=== PATIENT | female | born 1960 | race Caucasian/White ===

== ENCOUNTER 2020-09-16 12:10 | Inpatient (IN) ==
[2020-09-16 13:19] LABS: Basophils % 0.2 % (0.0-0.8); Hematocrit 39.6 VOL% (35.7-47.0); Immature Granulocytes % 0.6 %; Immature Granulocytes Absolute 0.03 #; Lymphocytes # 0.4 10*3/uL (1.4-4.0); Lymphocytes % 7.9 % (21.3-54.2); Mean Corpuscular HGB Conc 35.4 GM/DL (32-36); Mean Corpuscular Volume 83.9 FL (87-102); Mean Platelet Volume 10.6 FL (9.6-12.0); Monocytes % 6.9 % (1.7-12.7); Neutrophils % 84.4 % (38.7-73.9); Platelet Count 164 T/CUMM (130-400); Red Blood Count 4.72 MC/CUMM (3.8-5.5); Red Cell Distribution Width 11.9 % (9.3-17.3)
[2020-09-16 13:41] LABS: Bilirubin,Total 0.8 MG/DL (0.20-1.00); Potassium 3.1 MMOL/L (3.5-5.1); Total Protein 6.6 G/DL (6.4-8.2)
[2020-09-16] MEDS ORDERED: DEXAMETHASONE 4 MG TABLET PO ONE (14:30)
[2020-09-16] MEDS ORDERED: CASIRIVIMAB/IMDEVIMAB 1,200 MG in SODIUM CHLORIDE 0.9% 100 ML IV ONE (14:30)
[2020-09-16] MEDS ORDERED: ONDANSETRON 4 MG/2 ML VIAL IV PRN (14:30)
[2020-09-16] MEDS ORDERED: diphenhydrAMINE 50 MG/1 ML VIAL IV PRN ×2 (14:30)
[2020-09-16] MEDS ORDERED: methylPREDNISolone SOD SUC 125 MG/2 ML VIAL IV PRN (14:30)
[2020-09-16] MEDS ORDERED: MECLIZINE 25 MG TABLET PO PRN (14:30)
[2020-09-16] MEDS ORDERED: ACETAMINOPHEN 325 MG TABLET PO PRN (14:30)
[2020-09-16] MEDS ORDERED: SODIUM CHLORIDE 0.9% 200 ML IV SCH (14:30)
[2020-09-16] MEDS ORDERED: SODIUM CHLORIDE 0.9% 1,000 ML IV SCH (14:30)
[2020-09-16] MEDS ORDERED: GLUCAGON 1 MG VIAL IM PRN (15:11)
[2020-09-16] MEDS ORDERED: DEXTROSE 50% 25 GM/50 ML VIAL IV PRN (15:11)
[2020-09-16] MEDS ORDERED: ALUMINUM/MAGNES/SIMETH MAX STR 30 ML UDCUP PO PRN (15:16)
[2020-09-16] MEDS ORDERED: cefTRIAXone 1,000 MG in SODIUM CHLORIDE 0.9% 100 ML IV STA (15:58)
[2020-09-16] MEDS ORDERED: AZITHROMYCIN 250 MG TABLET PO STA (16:00)
[2020-09-16] MEDS ORDERED: POTASSIUM CHLORIDE 20 MEQ TABLET PO PRN (16:09)
[2020-09-16] MEDS ORDERED: POTASSIUM CHLORIDE 20 MEQ TABLET PO ONE (16:09)
[2020-09-16] MEDS ORDERED: REMDESIVIR 200 MG in SODIUM CHLORIDE 0.9% 210 ML IV ONE (17:00)
[2020-09-16] MEDS: ASCORBIC ACID 500 MG TABLET PO SCH (21:27)
[2020-09-16] MEDS: BUDESONIDE/FORMOTEROL 160-4.5 INHALER 6 GM INH SCH (21:27)
[2020-09-16] MEDS: RIVAROXABAN 10 MG TABLET PO SCH (21:41)
[2020-09-17 06:21] LABS: Hematocrit 43.2 VOL% (35.7-47.0); Hemoglobin 14.2 GM/DL (12.0-16.0); Immature Granulocytes % 0.4 %; Immature Granulocytes Absolute 0.02 #; Lymphocytes # 0.4 10*3/uL (1.4-4.0); Lymphocytes % 8.9 % (21.3-54.2); Mean Corpuscular HGB Conc 32.9 GM/DL (32-36); Mean Corpuscular Volume 89.3 FL (87-102); Mean Platelet Volume 11.2 FL (9.6-12.0); Monocytes % 8.7 % (1.7-12.7); Platelet Count 177 T/CUMM (130-400); Red Blood Count 4.84 MC/CUMM (3.8-5.5); Red Cell Distribution Width 12.3 % (9.3-17.3); White Blood Count 4.5 T/CUMM (4-12)
[2020-09-17 06:50] LABS: Calcium 8.4 MG/DL (8.5-10.1); Potassium 3.6 MMOL/L (3.5-5.1)
[2020-09-17 06:53] LABS: Ferritin 1491.4 ng/ml (8-252)
[2020-09-17 08:19] LABS: ABG Base Excess 2.4 MMOL/L (-2.5-2.5); ABG HCO3 26.3 MMOL/L (20-26); ABG Oxygen Saturation 88.7 % (95-100); ABG PCO2 37.9 MM HG (35-48); ABG PH 7.449 (7.35-7.45); ABG PO2 57.5 MM HG (80-95); ABG TCO2 22.5 MMOL/L (23-27)
[2020-09-17] MEDS ORDERED: PANTOPRAZOLE 40 MG VIAL IV SCH (09:00)
[2020-09-17] MEDS: ASCORBIC ACID 500 MG TABLET PO SCH ×2 (09:23→21:06)
[2020-09-17] MEDS: BUDESONIDE/FORMOTEROL 160-4.5 INHALER 6 GM INH SCH ×2 (09:23→21:06)
[2020-09-17] MEDS: DEXAMETHASONE 4 MG/1 ML VIAL IV SCH (09:23)
[2020-09-17] MEDS: CHOLECALCIFEROL 1,000 UNIT TABLET PO SCH (09:24)
[2020-09-17] MEDS: ZINC GLUCONATE 50 MG TABLET PO SCH (09:24)
[2020-09-17] MEDS: REMDESIVIR 100 MG in SODIUM CHLORIDE 0.9% 100 ML IV SCH (14:03)
[2020-09-17] MEDS: AZITHROMYCIN 250 MG TABLET PO SCH (15:26)
[2020-09-17] MEDS ORDERED: AZITHROMYCIN INJ 500 MG in SODIUM CHLORIDE 0.9% 250 ML IV SCH (16:00)
[2020-09-17] MEDS ORDERED: AZITHROMYCIN INJ 250 MG in SODIUM CHLORIDE 0.9% 250 ML IV SCH (16:00)
[2020-09-17] MEDS: cefTRIAXone 1,000 MG in SODIUM CHLORIDE 0.9% 100 ML IV SCH (18:00)
[2020-09-17] MEDS: RIVAROXABAN 10 MG TABLET PO SCH (21:06)
[2020-09-18] MEDS ORDERED: ALPRAZolam 0.5 MG TABLET PO ONE (03:27)
[2020-09-18 04:22] LABS: ABG Base Excess 2.2 MMOL/L (-2.5-2.5); ABG HCO3 26.9 MMOL/L (20-26); ABG Oxygen Saturation 87.6 % (95-100); ABG PCO2 41.8 MM HG (35-48); ABG PH 7.426 (7.35-7.45); ABG PO2 54.9 MM HG (80-95); ABG TCO2 28.2 MMOL/L (23-27)
[2020-09-18 05:13] LABS: Basophils % 0.2 % (0.0-0.8); Hematocrit 43.4 VOL% (35.7-47.0); Hemoglobin 14.4 GM/DL (12.0-16.0); Immature Granulocytes % 0.5 %; Immature Granulocytes Absolute 0.03 #; Lymphocytes # 0.7 10*3/uL (1.4-4.0); Lymphocytes % 10.7 % (21.3-54.2); Mean Corpuscular HGB Conc 33.2 GM/DL (32-36); Mean Corpuscular Volume 87.1 FL (87-102); Mean Platelet Volume 10.7 FL (9.6-12.0); Monocytes % 8.7 % (1.7-12.7); Neutrophils % 79.9 % (38.7-73.9); Platelet Count 271 T/CUMM (130-400); Red Blood Count 4.98 MC/CUMM (3.8-5.5); Red Cell Distribution Width 12.3 % (9.3-17.3); White Blood Count 6.6 T/CUMM (4-12)
[2020-09-18] MEDS: PANTOPRAZOLE 40 MG TABLET PO SCH (05:44)
[2020-09-18 05:47] LABS: Albumin 2.9 G/DL (3.4-5.0); Bilirubin,Direct 0.14 MG/DL (0.0-0.20); Bilirubin,Indirect 0.6 MG/DL (0.0-1.0); Bilirubin,Total 0.7 MG/DL (0.20-1.00); Total Protein 7.3 G/DL (6.4-8.2)
[2020-09-18 05:48] LABS: Calcium 8.4 MG/DL (8.5-10.1); Osmolality,Calculated 279.5 MOS/KG (273-304); Potassium 4.2 MMOL/L (3.5-5.1)
[2020-09-18 05:52] LABS: Ferritin 1754.8 ng/ml (8-252)
[2020-09-18] MEDS: AZITHROMYCIN 250 MG TABLET PO SCH (09:33)
[2020-09-18] MEDS: cefTRIAXone 1,000 MG in SODIUM CHLORIDE 0.9% 100 ML IV SCH (09:33)
[2020-09-18] MEDS: DEXAMETHASONE 4 MG/1 ML VIAL IV SCH (09:33)
[2020-09-18] MEDS: CHOLECALCIFEROL 1,000 UNIT TABLET PO SCH (09:33)
[2020-09-18] MEDS: BUDESONIDE/FORMOTEROL 160-4.5 INHALER 6 GM INH SCH ×2 (09:33→21:56)
[2020-09-18] MEDS: ASCORBIC ACID 500 MG TABLET PO SCH ×2 (09:33→21:56)
[2020-09-18] MEDS: ZINC GLUCONATE 50 MG TABLET PO SCH (09:33)
[2020-09-18] MEDS: REMDESIVIR 100 MG in SODIUM CHLORIDE 0.9% 100 ML IV SCH (10:55)
[2020-09-18] MEDS: RIVAROXABAN 10 MG TABLET PO SCH (21:56)
[2020-09-19 05:46] LABS: Basophils % 0.2 % (0.0-0.8); Hematocrit 43.3 VOL% (35.7-47.0); Hemoglobin 14.2 GM/DL (12.0-16.0); Immature Granulocytes % 0.8 %; Immature Granulocytes Absolute 0.07 #; Lymphocytes # 0.7 10*3/uL (1.4-4.0); Lymphocytes % 7.9 % (21.3-54.2); Mean Corpuscular HGB Conc 32.8 GM/DL (32-36); Mean Corpuscular Volume 90.2 FL (87-102); Mean Platelet Volume 10.1 FL (9.6-12.0); Monocytes % 9.5 % (1.7-12.7); Neutrophils % 81.6 % (38.7-73.9); Platelet Count 305 T/CUMM (130-400); Red Cell Distribution Width 11.9 % (9.3-17.3); White Blood Count 8.4 T/CUMM (4-12)
[2020-09-19] MEDS: LEVOTHYROXINE 112 MCG TABLET PO SCH (05:54)
[2020-09-19] MEDS: PANTOPRAZOLE 40 MG TABLET PO SCH (05:54)
[2020-09-19 06:05] LABS: Calcium 8.4 MG/DL (8.5-10.1); Osmolality,Calculated 274.8 MOS/KG (273-304); Potassium 3.9 MMOL/L (3.5-5.1)
[2020-09-19 06:08] LABS: Albumin 2.6 G/DL (3.4-5.0); Bilirubin,Direct 0.14 MG/DL (0.0-0.20); Bilirubin,Indirect 0.6 MG/DL (0.0-1.0); Bilirubin,Total 0.7 MG/DL (0.20-1.00); Total Protein 6.6 G/DL (6.4-8.2)
[2020-09-19 06:16] LABS: Ferritin 1387.9 ng/ml (8-252)
[2020-09-19] MEDS: DEXAMETHASONE 4 MG/1 ML VIAL IV SCH (10:43)
[2020-09-19] MEDS: ZINC GLUCONATE 50 MG TABLET PO SCH (10:43)
[2020-09-19] MEDS: CHOLECALCIFEROL 1,000 UNIT TABLET PO SCH (10:44)
[2020-09-19] MEDS: AZITHROMYCIN 250 MG TABLET PO SCH (10:44)
[2020-09-19] MEDS: ASCORBIC ACID 500 MG TABLET PO SCH ×2 (10:45→20:41)
[2020-09-19] MEDS: cefTRIAXone 1,000 MG in SODIUM CHLORIDE 0.9% 100 ML IV SCH (10:45)
[2020-09-19] MEDS: IVERMECTIN 3 MG TABLET PO SCH (10:48)
[2020-09-19] MEDS: BUDESONIDE/FORMOTEROL 160-4.5 INHALER 6 GM INH SCH ×2 (12:22→23:32)
[2020-09-19] MEDS: RIVAROXABAN 10 MG TABLET PO SCH (20:41)
[2020-09-20 05:12] LABS: ABG Base Excess 4.1 MMOL/L (-2.5-2.5); ABG HCO3 27.4 MMOL/L (20-26); ABG Oxygen Saturation 91.7 % (95-100); ABG PCO2 36.8 MM HG (35-48); ABG PO2 61.5 MM HG (80-95); ABG TCO2 28.5 MMOL/L (23-27)
[2020-09-20] MEDS: PANTOPRAZOLE 40 MG TABLET PO SCH (05:40)
[2020-09-20] MEDS: LEVOTHYROXINE 112 MCG TABLET PO SCH (05:40)
[2020-09-20 06:35] LABS: Basophils % 0.4 % (0.0-0.8); Hematocrit 45.2 VOL% (35.7-47.0); Hemoglobin 14.9 GM/DL (12.0-16.0); Immature Granulocytes % 1.1 %; Immature Granulocytes Absolute 0.09 #; Lymphocytes # 0.7 10*3/uL (1.4-4.0); Lymphocytes % 7.8 % (21.3-54.2); Mean Corpuscular Volume 87.4 FL (87-102); Mean Platelet Volume 10.2 FL (9.6-12.0); Monocytes % 8.1 % (1.7-12.7); Neutrophils % 82.6 % (38.7-73.9); Platelet Count 395 T/CUMM (130-400); Red Blood Count 5.17 MC/CUMM (3.8-5.5); Red Cell Distribution Width 11.9 % (9.3-17.3); White Blood Count 8.5 T/CUMM (4-12)
[2020-09-20 06:46] LABS: Albumin 2.8 G/DL (3.4-5.0); Bilirubin,Direct 0.18 MG/DL (0.0-0.20); Bilirubin,Indirect 0.7 MG/DL (0.0-1.0); Bilirubin,Total 0.9 MG/DL (0.20-1.00)
[2020-09-20 06:59] LABS: Ferritin 1218.7 ng/ml (8-252)
[2020-09-20 07:01] LABS: Calcium 8.6 MG/DL (8.5-10.1); Osmolality,Calculated 273.8 MOS/KG (273-304); Potassium 3.8 MMOL/L (3.5-5.1)
[2020-09-20] MEDS: ASCORBIC ACID 500 MG TABLET PO SCH ×2 (09:42→22:06)
[2020-09-20] MEDS: AZITHROMYCIN 250 MG TABLET PO SCH (09:42)
[2020-09-20] MEDS: DEXAMETHASONE 10 MG/1 ML VIAL IV SCH ×3 (09:42→22:07)
[2020-09-20] MEDS: IVERMECTIN 3 MG TABLET PO SCH (09:42)
[2020-09-20] MEDS: cefTRIAXone 1,000 MG in SODIUM CHLORIDE 0.9% 100 ML IV SCH (09:43)
[2020-09-20] MEDS: BUDESONIDE/FORMOTEROL 160-4.5 INHALER 6 GM INH SCH (10:48)
[2020-09-20] MEDS: ZINC GLUCONATE 50 MG TABLET PO SCH (12:09)
[2020-09-20] MEDS: CETIRIZINE 10 MG TABLET PO SCH (12:09)
[2020-09-20] MEDS: FAMOTIDINE 20 MG TABLET PO SCH ×2 (12:09→22:08)
[2020-09-20] MEDS: CHOLECALCIFEROL 5,000 UNIT TABLET PO SCH (12:09)
[2020-09-20] MEDS: ONDANSETRON 4 MG/2 ML VIAL IV PRN (18:09)
[2020-09-20] MEDS: RIVAROXABAN 10 MG TABLET PO SCH (22:07)
[2020-09-20] MEDS: MELATONIN 3 MG TABLET PO SCH (22:07)
[2020-09-21] MEDS ORDERED: DEXMEDETOMIDINE 400 MCG in SODIUM CHLORIDE 0.9% 96 ML IV PRN (01:01)
[2020-09-21] MEDS: BUDESONIDE/FORMOTEROL 160-4.5 INHALER 6 GM INH SCH ×3 (01:10→21:26)
[2020-09-21 02:24] LABS: Bilirubin,Urine Negative (Negative); Blood, Urine Negative (Negative); Glucose,Urine (UA) Negative (Negative); Ketones,Urine Negative (Negative); Nitrite,Urine Negative (Negative); Protein,Urine Negative; RBC,Urine <1 /HPF (0-4); Squamous Epithelial Cell,Urine Occasional /HPF (0-10); Urine Appearance CLEAR (Clear); Urine Color Colorless (Yellow); Urine Specific Gravity 1.001 (1.001-1.035); Urine Urobilinogen < 2.0 EU/DL (0.2-1.0)
[2020-09-21 02:38] LABS: ABG Base Excess 3.6 MMOL/L (-2.5-2.5); ABG HCO3 27.8 MMOL/L (20-26); ABG PCO2 40.3 MM HG (35-48); ABG PH 7.456 (7.35-7.45); ABG PO2 65.3 MM HG (80-95)
[2020-09-21] MEDS: DEXAMETHASONE 10 MG/1 ML VIAL IV SCH ×3 (04:54→21:26)
[2020-09-21 05:03] LABS: Basophils % 0.3 % (0.0-0.8); Hematocrit 42.5 VOL% (35.7-47.0); Hemoglobin 14.5 GM/DL (12.0-16.0); Immature Granulocytes % 2.5 %; Immature Granulocytes Absolute 0.23 #; Lymphocytes # 0.5 10*3/uL (1.4-4.0); Lymphocytes % 5.4 % (21.3-54.2); Mean Corpuscular HGB Conc 34.1 GM/DL (32-36); Mean Corpuscular Volume 85.9 FL (87-102); Mean Platelet Volume 9.8 FL (9.6-12.0); Monocytes % 4.9 % (1.7-12.7); Neutrophils % 86.9 % (38.7-73.9); Platelet Count 303 T/CUMM (130-400); Red Blood Count 4.95 MC/CUMM (3.8-5.5); Red Cell Distribution Width 11.8 % (9.3-17.3); White Blood Count 9.4 T/CUMM (4-12)
[2020-09-21 05:23] LABS: Calcium 8.3 MG/DL (8.5-10.1); Osmolality,Calculated 281.4 MOS/KG (273-304); Potassium 4.6 MMOL/L (3.5-5.1)
[2020-09-21 05:29] LABS: Ferritin 1026.5 ng/ml (8-252)
[2020-09-21] MEDS: LEVOTHYROXINE 112 MCG TABLET PO SCH (05:36)
[2020-09-21] MEDS: CETIRIZINE 10 MG TABLET PO SCH (08:44)
[2020-09-21] MEDS: IVERMECTIN 3 MG TABLET PO SCH (08:46)
[2020-09-21] MEDS: FAMOTIDINE 20 MG TABLET PO SCH ×2 (08:47→21:27)
[2020-09-21] MEDS: ZINC GLUCONATE 50 MG TABLET PO SCH (08:47)
[2020-09-21] MEDS: ASCORBIC ACID 500 MG TABLET PO SCH ×2 (08:50→21:27)
[2020-09-21] MEDS: CHOLECALCIFEROL 5,000 UNIT TABLET PO SCH (08:50)
[2020-09-21] MEDS: cefTRIAXone 1,000 MG in SODIUM CHLORIDE 0.9% 100 ML IV SCH (09:15)
[2020-09-21] MEDS: ALPRAZolam 0.5 MG TABLET PO PRN ×2 (10:10→21:27)
[2020-09-21 12:56] LABS: ABG Base Excess 4.6 MMOL/L (-2.5-2.5); ABG HCO3 28.2 MMOL/L (20-26); ABG Oxygen Saturation 87.3 % (95-100); ABG PCO2 42.4 MM HG (35-48); ABG PH 7.446 (7.35-7.45); ABG PO2 56.1 MM HG (80-95)
[2020-09-21] MEDS: ONDANSETRON 4 MG/2 ML VIAL IV PRN (18:06)
[2020-09-21] MEDS: ENOXAPARIN 60 MG/0.6 ML SYRINGE SUBCUT SCH (21:27)
[2020-09-21] MEDS: MELATONIN 3 MG TABLET PO SCH (21:27)
[2020-09-22 03:19] LABS: Basophils % 0.1 % (0.0-0.8); Hematocrit 41.7 VOL% (35.7-47.0); Hemoglobin 14.1 GM/DL (12.0-16.0); Immature Granulocytes % 2.7 %; Lymphocytes # 0.5 10*3/uL (1.4-4.0); Lymphocytes % 3.5 % (21.3-54.2); Mean Corpuscular HGB Conc 33.8 GM/DL (32-36); Mean Corpuscular Volume 85.6 FL (87-102); Mean Platelet Volume 9.9 FL (9.6-12.0); Monocytes % 5.9 % (1.7-12.7); Neutrophils % 87.8 % (38.7-73.9); Platelet Count 289 T/CUMM (130-400); Red Blood Count 4.87 MC/CUMM (3.8-5.5); Red Cell Distribution Width 11.8 % (9.3-17.3); White Blood Count 14.7 T/CUMM (4-12)
[2020-09-22 03:40] LABS: Hypochromasia 1+; Lymphocytes 1 % (20-55); Microcytosis 1+; Platelet Estimate Normal; Segmented Neutrophils 94 % (50-85); Total Cells Counted 100
[2020-09-22 04:03] LABS: ABG HCO3 28.7 MMOL/L (20-26); ABG Oxygen Saturation 89.5 % (95-100); ABG PCO2 41.5 MM HG (35-48); ABG PH 7.458 (7.35-7.45); ABG PO2 58.8 MM HG (80-95); ABG TCO2 25.1 MMOL/L (23-27); Allen Test Positive; Pt O2 Delivery Device BIPAP
[2020-09-22 04:24] LABS: Calcium 7.9 MG/DL (8.5-10.1); Osmolality,Calculated 282.5 MOS/KG (273-304); Potassium 4.4 MMOL/L (3.5-5.1)
[2020-09-22 04:26] LABS: Ferritin 842.8 ng/ml (8-252)
[2020-09-22] MEDS: LEVOTHYROXINE 112 MCG TABLET PO SCH (06:22)
[2020-09-22] MEDS: cefTRIAXone 1,000 MG in SODIUM CHLORIDE 0.9% 100 ML IV SCH (08:05)
[2020-09-22] MEDS: FAMOTIDINE 20 MG TABLET PO SCH ×2 (08:05→20:48)
[2020-09-22] MEDS: ZINC GLUCONATE 50 MG TABLET PO SCH (08:05)
[2020-09-22] MEDS: DEXAMETHASONE 10 MG/1 ML VIAL IV SCH (08:05)
[2020-09-22] MEDS: ENOXAPARIN 60 MG/0.6 ML SYRINGE SUBCUT SCH ×2 (08:05→20:48)
[2020-09-22] MEDS: CHOLECALCIFEROL 5,000 UNIT TABLET PO SCH (08:05)
[2020-09-22] MEDS: BUDESONIDE/FORMOTEROL 160-4.5 INHALER 6 GM INH SCH ×2 (08:05→20:48)
[2020-09-22] MEDS: IVERMECTIN 3 MG TABLET PO SCH (08:05)
[2020-09-22] MEDS: ASCORBIC ACID 500 MG TABLET PO SCH ×2 (08:05→20:49)
[2020-09-22] MEDS: CETIRIZINE 10 MG TABLET PO SCH (08:06)
[2020-09-22] MEDS ORDERED: MORPHINE 2 MG/1 ML SYRINGE ONE (13:11)
[2020-09-22] MEDS: MORPHINE 2 MG/1 ML SYRINGE IV PRN (13:15)
[2020-09-22] MEDS: ALPRAZolam 0.5 MG TABLET PO PRN ×2 (13:17→20:49)
[2020-09-22] MEDS: MELATONIN 3 MG TABLET PO SCH (20:48)
[2020-09-23 05:19] LABS: ABG Base Excess 5.5 MMOL/L (-2.5-2.5); ABG HCO3 29.2 MMOL/L (20-26); ABG Oxygen Saturation 89.8 % (95-100); ABG PCO2 40.9 MM HG (35-48); ABG PH 7.469 (7.35-7.45); ABG PO2 57.7 MM HG (80-95); ABG TCO2 25.5 MMOL/L (23-27); Allen Test Positive; Pt O2 Delivery Device Other
[2020-09-23] MEDS: LEVOTHYROXINE 112 MCG TABLET PO SCH (05:52)
[2020-09-23 06:24] LABS: Basophils % 0.2 % (0.0-0.8); Eosinophils % 0.2 % (0.00-10.9); Hematocrit 42.2 VOL% (35.7-47.0); Hemoglobin 13.8 GM/DL (12.0-16.0); Immature Granulocytes % 4.7 %; Immature Granulocytes Absolute 0.63 #; Lymphocytes # 0.6 10*3/uL (1.4-4.0); Lymphocytes % 4.6 % (21.3-54.2); Mean Corpuscular HGB Conc 32.7 GM/DL (32-36); Mean Corpuscular Volume 88.7 FL (87-102); Mean Platelet Volume 9.9 FL (9.6-12.0); Monocytes % 3.8 % (1.7-12.7); Neutrophils % 86.5 % (38.7-73.9); Platelet Count 272 T/CUMM (130-400); Red Blood Count 4.76 MC/CUMM (3.8-5.5); Red Cell Distribution Width 11.9 % (9.3-17.3); White Blood Count 13.3 T/CUMM (4-12)
[2020-09-23 06:38] LABS: Calcium 8.1 MG/DL (8.5-10.1); Osmolality,Calculated 275.7 MOS/KG (273-304)
[2020-09-23 07:03] LABS: Band Neutrophils 1 % (0-10); Hypochromasia Slight; Lymphocytes 9 % (20-55); Segmented Neutrophils 89 % (50-85); Total Cells Counted 100
[2020-09-23 07:04] LABS: Microcytosis 1+; Platelet Estimate Normal
[2020-09-23] MEDS: DEXAMETHASONE 10 MG/1 ML VIAL IV SCH (08:22)
[2020-09-23] MEDS: FAMOTIDINE 20 MG TABLET PO SCH ×2 (08:23→20:25)
[2020-09-23] MEDS: ZINC GLUCONATE 50 MG TABLET PO SCH (08:23)
[2020-09-23] MEDS: CETIRIZINE 10 MG TABLET PO SCH (08:23)
[2020-09-23] MEDS: ASCORBIC ACID 500 MG TABLET PO SCH ×2 (08:23→20:26)
[2020-09-23] MEDS: cefTRIAXone 1,000 MG in SODIUM CHLORIDE 0.9% 100 ML IV SCH (08:23)
[2020-09-23] MEDS: CHOLECALCIFEROL 5,000 UNIT TABLET PO SCH (08:23)
[2020-09-23] MEDS: ENOXAPARIN 60 MG/0.6 ML SYRINGE SUBCUT SCH ×2 (08:23→20:25)
[2020-09-23] MEDS: IVERMECTIN 3 MG TABLET PO SCH (08:23)
[2020-09-23] MEDS: BUDESONIDE/FORMOTEROL 160-4.5 INHALER 6 GM INH SCH ×2 (08:23→20:25)
[2020-09-23] MEDS: ALPRAZolam 0.5 MG TABLET PO PRN ×2 (08:45→20:27)
[2020-09-23] MEDS: MORPHINE 2 MG/1 ML SYRINGE IV PRN ×2 (09:39→20:26)
[2020-09-23] MEDS: MELATONIN 3 MG TABLET PO SCH (20:25)
[2020-09-24 04:31] LABS: ABG Base Excess 4.8 MMOL/L (-2.5-2.5); ABG HCO3 28.6 MMOL/L (20-26); ABG Oxygen Saturation 88.5 % (95-100); ABG PCO2 39.4 MM HG (35-48); ABG PH 7.478 (7.35-7.45); ABG PO2 57.6 MM HG (80-95); ABG TCO2 29.8 MMOL/L (23-27); Allen Test Positive; Pt O2 Delivery Device BIPAP
[2020-09-24 04:59] LABS: Basophils # 0.1 10*3/uL (0.0-0.2); Basophils % 0.3 % (0.0-0.8); Eosinophils % 0.2 % (0.00-10.9); Hematocrit 41.7 VOL% (35.7-47.0); Hemoglobin 14.5 GM/DL (12.0-16.0); Immature Granulocytes % 3.5 %; Lymphocytes # 0.5 10*3/uL (1.4-4.0); Lymphocytes % 3.6 % (21.3-54.2); Mean Corpuscular HGB Conc 34.8 GM/DL (32-36); Mean Corpuscular Volume 86.9 FL (87-102); Monocytes % 3.9 % (1.7-12.7); Neutrophils % 88.5 % (38.7-73.9); Platelet Count 257 T/CUMM (130-400); Red Cell Distribution Width 11.9 % (9.3-17.3); White Blood Count 14.4 T/CUMM (4-12)
[2020-09-24 05:23] LABS: Calcium 8.2 MG/DL (8.5-10.1); Lymphocytes 4 % (20-55); Osmolality,Calculated 271.8 MOS/KG (273-304); Platelet Estimate Normal; Potassium 4.3 MMOL/L (3.5-5.1); Segmented Neutrophils 94 % (50-85); Total Cells Counted 100
[2020-09-24] MEDS: LEVOTHYROXINE 112 MCG TABLET PO SCH (06:42)
[2020-09-24] MEDS: ALPRAZolam 0.5 MG TABLET PO PRN ×2 (08:30→20:50)
[2020-09-24] MEDS: DEXAMETHASONE 10 MG/1 ML VIAL IV SCH (08:30)
[2020-09-24] MEDS: BUDESONIDE/FORMOTEROL 160-4.5 INHALER 6 GM INH SCH ×2 (09:49→20:49)
[2020-09-24] MEDS: CHOLECALCIFEROL 5,000 UNIT TABLET PO SCH (09:49)
[2020-09-24] MEDS: ZINC GLUCONATE 50 MG TABLET PO SCH (09:49)
[2020-09-24] MEDS: FAMOTIDINE 20 MG TABLET PO SCH ×2 (09:49→20:49)
[2020-09-24] MEDS: ENOXAPARIN 60 MG/0.6 ML SYRINGE SUBCUT SCH ×2 (09:49→20:49)
[2020-09-24] MEDS: ASCORBIC ACID 500 MG TABLET PO SCH ×2 (09:49→20:49)
[2020-09-24] MEDS: CETIRIZINE 10 MG TABLET PO SCH (09:50)
[2020-09-24] MEDS: MELATONIN 3 MG TABLET PO SCH (20:49)
[2020-09-24] MEDS: MORPHINE 2 MG/1 ML SYRINGE IV PRN (21:39)
[2020-09-25 04:47] LABS: ABG Base Excess 4.9 MMOL/L (-2.5-2.5); ABG HCO3 28.6 MMOL/L (20-26); ABG Oxygen Saturation 89.2 % (95-100); ABG PCO2 40.1 MM HG (35-48); ABG PH 7.467 (7.35-7.45); ABG PO2 57.7 MM HG (80-95); ABG TCO2 24.8 MMOL/L (23-27)
[2020-09-25 06:07] LABS: Basophils % 0.1 % (0.0-0.8); Eosinophils % 0.2 % (0.00-10.9); Hematocrit 43.4 VOL% (35.7-47.0); Hemoglobin 14.1 GM/DL (12.0-16.0); Immature Granulocytes % 3.6 %; Immature Granulocytes Absolute 0.49 #; Lymphocytes # 0.4 10*3/uL (1.4-4.0); Lymphocytes % 3.1 % (21.3-54.2); Mean Corpuscular HGB Conc 32.5 GM/DL (32-36); Mean Corpuscular Volume 88.6 FL (87-102); Mean Platelet Volume 9.9 FL (9.6-12.0); Monocytes % 3.8 % (1.7-12.7); Neutrophils % 89.2 % (38.7-73.9); Platelet Count 246 T/CUMM (130-400); Red Cell Distribution Width 12.2 % (9.3-17.3); White Blood Count 13.6 T/CUMM (4-12)
[2020-09-25] MEDS: LEVOTHYROXINE 112 MCG TABLET PO SCH (06:14)
[2020-09-25 06:35] LABS: Calcium 8.5 MG/DL (8.5-10.1); Osmolality,Calculated 269.1 MOS/KG (273-304); Potassium 4.3 MMOL/L (3.5-5.1)
[2020-09-25 07:14] LABS: Lymphocytes 2 % (20-55); Platelet Estimate Normal; Segmented Neutrophils 95 % (50-85); Total Cells Counted 100
[2020-09-25] MEDS: DEXAMETHASONE 10 MG/1 ML VIAL IV SCH (09:00)
[2020-09-25] MEDS: CETIRIZINE 10 MG TABLET PO SCH (09:01)
[2020-09-25] MEDS: BUDESONIDE/FORMOTEROL 160-4.5 INHALER 6 GM INH SCH ×2 (09:01→20:54)
[2020-09-25] MEDS: CHOLECALCIFEROL 5,000 UNIT TABLET PO SCH (09:01)
[2020-09-25] MEDS: ASCORBIC ACID 500 MG TABLET PO SCH ×2 (09:01→20:53)
[2020-09-25] MEDS: ENOXAPARIN 60 MG/0.6 ML SYRINGE SUBCUT SCH ×2 (09:01→20:53)
[2020-09-25] MEDS: ZINC GLUCONATE 50 MG TABLET PO SCH (09:01)
[2020-09-25] MEDS: FAMOTIDINE 20 MG TABLET PO SCH ×2 (09:01→20:53)
[2020-09-25] MEDS: ALPRAZolam 0.5 MG TABLET PO PRN (10:18)
[2020-09-25] MEDS: MELATONIN 3 MG TABLET PO SCH (20:53)
[2020-09-26 05:07] LABS: Basophils % 0.2 % (0.0-0.8); Eosinophils # 0.1 10*3/uL (0.0-0.87); Eosinophils % 0.5 % (0.00-10.9); Hematocrit 45.3 VOL% (35.7-47.0); Hemoglobin 14.9 GM/DL (12.0-16.0); Immature Granulocytes % 2.2 %; Immature Granulocytes Absolute 0.41 #; Lymphocytes # 0.5 10*3/uL (1.4-4.0); Lymphocytes % 2.7 % (21.3-54.2); Mean Corpuscular HGB Conc 32.9 GM/DL (32-36); Mean Corpuscular Volume 87.8 FL (87-102); Mean Platelet Volume 10.4 FL (9.6-12.0); Monocytes % 5.2 % (1.7-12.7); Neutrophils % 89.2 % (38.7-73.9); Platelet Count 253 T/CUMM (130-400); Red Blood Count 5.16 MC/CUMM (3.8-5.5); Red Cell Distribution Width 12.2 % (9.3-17.3); White Blood Count 18.5 T/CUMM (4-12)
[2020-09-26 05:36] LABS: Calcium 8.9 MG/DL (8.5-10.1); Osmolality,Calculated 272.8 MOS/KG (273-304); Potassium 4.2 MMOL/L (3.5-5.1)
[2020-09-26 05:37] LABS: Band Neutrophils 1 % (0-10); Lymphocytes 1 % (20-55); Platelet Estimate Adequate; Segmented Neutrophils 94 % (50-85); Total Cells Counted 100
[2020-09-26 05:39] LABS: ABG Base Excess 4.4 MMOL/L (-2.5-2.5); ABG HCO3 27.5 MMOL/L (20-26); ABG Oxygen Saturation 87.9 % (95-100); ABG PCO2 36.1 MM HG (35-48); ABG PH 7.499 (7.35-7.45); ABG PO2 55.5 MM HG (80-95); ABG TCO2 28.6 MMOL/L (23-27); Allen Test Positive; Pt O2 Delivery Device Other
[2020-09-26] MEDS: LEVOTHYROXINE 112 MCG TABLET PO SCH (06:26)
[2020-09-26] MEDS: FAMOTIDINE 20 MG TABLET PO SCH ×2 (08:42→21:20)
[2020-09-26] MEDS: CETIRIZINE 10 MG TABLET PO SCH (08:42)
[2020-09-26] MEDS: ZINC GLUCONATE 50 MG TABLET PO SCH (08:42)
[2020-09-26] MEDS: CHOLECALCIFEROL 5,000 UNIT TABLET PO SCH (08:42)
[2020-09-26] MEDS: ASCORBIC ACID 500 MG TABLET PO SCH ×2 (08:42→21:20)
[2020-09-26] MEDS: DEXAMETHASONE 10 MG/1 ML VIAL IV SCH (08:43)
[2020-09-26] MEDS: BUDESONIDE/FORMOTEROL 160-4.5 INHALER 6 GM INH SCH ×2 (08:43→21:20)
[2020-09-26] MEDS: ENOXAPARIN 60 MG/0.6 ML SYRINGE SUBCUT SCH ×2 (08:43→21:20)
[2020-09-26] MEDS: SODIUM CHLORIDE 0.9% 1,000 ML IV SCH (10:22)
[2020-09-26] MEDS: ALPRAZolam 0.5 MG TABLET PO PRN ×2 (14:15→21:21)
[2020-09-26] MEDS: MELATONIN 3 MG TABLET PO SCH (21:20)
[2020-09-27 03:10] LABS: ABG Base Excess 1.4 MMOL/L (-2.5-2.5); ABG HCO3 24.8 MMOL/L (20-26); ABG PCO2 35.6 MM HG (35-48); ABG PH 7.461 (7.35-7.45); ABG TCO2 25.9 MMOL/L (23-27)
[2020-09-27] MEDS: SODIUM CHLORIDE 0.9% 1,000 ML IV SCH ×4 (04:44→19:00)
[2020-09-27 06:35] LABS: Calcium 8.7 MG/DL (8.5-10.1); Osmolality,Calculated 273.8 MOS/KG (273-304); Potassium 4.3 MMOL/L (3.5-5.1)
[2020-09-27 06:50] LABS: Basophils # 0.1 10*3/uL (0.0-0.2); Basophils % 0.5 % (0.0-0.8); Eosinophils # 0.1 10*3/uL (0.0-0.87); Eosinophils % 0.3 % (0.00-10.9); Hematocrit 47.3 VOL% (35.7-47.0); Hemoglobin 15.2 GM/DL (12.0-16.0); Immature Granulocytes % 1.3 %; Immature Granulocytes Absolute 0.24 #; Lymphocytes # 0.5 10*3/uL (1.4-4.0); Mean Corpuscular HGB Conc 32.1 GM/DL (32-36); Mean Corpuscular Volume 93.3 FL (87-102); Mean Platelet Volume 10.6 FL (9.6-12.0); Monocytes % 5.9 % (1.7-12.7); Platelet Count 166 T/CUMM (130-400); Red Blood Count 5.07 MC/CUMM (3.8-5.5); Red Cell Distribution Width 12.6 % (9.3-17.3); White Blood Count 18.3 T/CUMM (4-12)
[2020-09-27] MEDS: LEVOTHYROXINE 112 MCG TABLET PO SCH (06:55)
[2020-09-27 07:14] LABS: Lymphocytes 3 % (20-55); Platelet Estimate Adequate; Segmented Neutrophils 90 % (50-85); Total Cells Counted 100
[2020-09-27] MEDS: CHOLECALCIFEROL 5,000 UNIT TABLET PO SCH (08:30)
[2020-09-27] MEDS: FAMOTIDINE 20 MG TABLET PO SCH ×2 (08:30→20:21)
[2020-09-27] MEDS: ZINC GLUCONATE 50 MG TABLET PO SCH (08:30)
[2020-09-27] MEDS: ASCORBIC ACID 500 MG TABLET PO SCH ×2 (08:30→20:21)
[2020-09-27] MEDS: CETIRIZINE 10 MG TABLET PO SCH (08:30)
[2020-09-27] MEDS: BUDESONIDE/FORMOTEROL 160-4.5 INHALER 6 GM INH SCH ×2 (08:30→20:21)
[2020-09-27] MEDS: ALPRAZolam 0.5 MG TABLET PO PRN ×2 (08:45→21:05)
[2020-09-27] MEDS: DEXAMETHASONE 10 MG/1 ML VIAL IV SCH (08:45)
[2020-09-27] MEDS: ENOXAPARIN 60 MG/0.6 ML SYRINGE SUBCUT SCH ×2 (09:34→20:21)
[2020-09-27] MEDS: MORPHINE 2 MG/1 ML SYRINGE IV PRN ×3 (09:35→21:12)
[2020-09-27] MEDS: MELATONIN 3 MG TABLET PO SCH (20:21)
[2020-09-28 05:46] LABS: ABG HCO3 25.9 MMOL/L (20-26); ABG Oxygen Saturation 86.1 % (95-100); ABG PH 7.443 (7.35-7.45); ABG PO2 52.4 MM HG (80-95); ABG TCO2 22.4 MMOL/L (23-27); Allen Test Positive; Pt O2 Delivery Device Other
[2020-09-28 05:47] LABS: Basophils % 0.2 % (0.0-0.8); Eosinophils # 0.1 10*3/uL (0.0-0.87); Eosinophils % 0.7 % (0.00-10.9); Hemoglobin 13.8 GM/DL (12.0-16.0); Immature Granulocytes % 1.2 %; Immature Granulocytes Absolute 0.23 #; Lymphocytes # 0.4 10*3/uL (1.4-4.0); Lymphocytes % 2.1 % (21.3-54.2); Mean Corpuscular HGB Conc 32.9 GM/DL (32-36); Mean Corpuscular Volume 88.2 FL (87-102); Mean Platelet Volume 10.4 FL (9.6-12.0); Monocytes % 5.6 % (1.7-12.7); Neutrophils % 90.2 % (38.7-73.9); Platelet Count 173 T/CUMM (130-400); Red Blood Count 4.76 MC/CUMM (3.8-5.5); Red Cell Distribution Width 12.6 % (9.3-17.3); White Blood Count 18.7 T/CUMM (4-12)
[2020-09-28] MEDS: LEVOTHYROXINE 112 MCG TABLET PO SCH (06:15)
[2020-09-28 06:16] LABS: Eosinophils 1 % (0-10); Hypochromasia Slight; Lymphocytes 1 % (20-55); Microcytosis Slight; Platelet Estimate Adequate; Segmented Neutrophils 91 % (50-85); Total Cells Counted 100
[2020-09-28 06:20] LABS: Calcium 8.4 MG/DL (8.5-10.1); Osmolality,Calculated 272.8 MOS/KG (273-304); Potassium 4.7 MMOL/L (3.5-5.1)
[2020-09-28] MEDS: MORPHINE 2 MG/1 ML SYRINGE IV PRN (09:05)
[2020-09-28] MEDS: ASCORBIC ACID 500 MG TABLET PO SCH ×2 (09:16→20:22)
[2020-09-28] MEDS: CETIRIZINE 10 MG TABLET PO SCH (09:16)
[2020-09-28] MEDS: ALPRAZolam 0.5 MG TABLET PO PRN ×2 (09:16→20:22)
[2020-09-28] MEDS: ENOXAPARIN 60 MG/0.6 ML SYRINGE SUBCUT SCH ×2 (09:16→20:22)
[2020-09-28] MEDS: CHOLECALCIFEROL 5,000 UNIT TABLET PO SCH (09:16)
[2020-09-28] MEDS: ZINC GLUCONATE 50 MG TABLET PO SCH (09:16)
[2020-09-28] MEDS: FAMOTIDINE 20 MG TABLET PO SCH ×2 (09:16→20:22)
[2020-09-28] MEDS: DEXAMETHASONE 10 MG/1 ML VIAL IV SCH (09:16)
[2020-09-28] MEDS: BUDESONIDE/FORMOTEROL 160-4.5 INHALER 6 GM INH SCH ×2 (09:16→20:23)
[2020-09-28] MEDS: SODIUM CHLORIDE 0.9% 1,000 ML IV SCH ×3 (09:19→16:26)
[2020-09-28] MEDS ORDERED: FUROSEMIDE 20 MG/2 ML VIAL IV ONE (15:00)
[2020-09-28] MEDS: methylPREDNISolone SOD SUC 40 MG/1 ML VIAL IV SCH (20:22)
[2020-09-28] MEDS: MELATONIN 3 MG TABLET PO SCH (20:22)
[2020-09-28] MEDS ORDERED: LORazepam 2 MG/1 ML VIAL IV PRN (22:59)
[2020-09-29 00:10] LABS: ABG HCO3 26.7 MMOL/L (20-26); ABG Oxygen Saturation 82.5 % (95-100); ABG PCO2 38.2 MM HG (35-48); ABG PH 7.463 (7.35-7.45); ABG PO2 48.6 MM HG (80-95); ABG TCO2 27.9 MMOL/L (23-27)
[2020-09-29 04:59] LABS: Allen Test Positive; Pt O2 Delivery Device BIPAP
[2020-09-29 05:01] LABS: ABG Base Excess 3.6 MMOL/L (-2.5-2.5); ABG HCO3 27.2 MMOL/L (20-26); ABG Oxygen Saturation 82.1 % (95-100); ABG PCO2 38.1 MM HG (35-48); ABG PH 7.472 (7.35-7.45); ABG PO2 48.2 MM HG (80-95); ABG TCO2 28.4 MMOL/L (23-27)
[2020-09-29 05:39] LABS: Basophils % 0.2 % (0.0-0.8); Hematocrit 42.6 VOL% (35.7-47.0); Hemoglobin 14.3 GM/DL (12.0-16.0); Immature Granulocytes % 1.3 %; Immature Granulocytes Absolute 0.15 #; Lymphocytes # 0.4 10*3/uL (1.4-4.0); Lymphocytes % 3.2 % (21.3-54.2); Mean Corpuscular HGB Conc 33.6 GM/DL (32-36); Mean Corpuscular Volume 86.4 FL (87-102); Mean Platelet Volume 11.2 FL (9.6-12.0); Monocytes % 3.2 % (1.7-12.7); Neutrophils % 92.1 % (38.7-73.9); Platelet Count 176 T/CUMM (130-400); Red Blood Count 4.93 MC/CUMM (3.8-5.5); Red Cell Distribution Width 12.5 % (9.3-17.3); White Blood Count 11.4 T/CUMM (4-12)
[2020-09-29] MEDS: methylPREDNISolone SOD SUC 40 MG/1 ML VIAL IV SCH ×3 (05:50→20:38)
[2020-09-29] MEDS: SODIUM CHLORIDE 0.9% 1,000 ML IV SCH ×3 (05:51→20:09)
[2020-09-29] MEDS: LEVOTHYROXINE 112 MCG TABLET PO SCH (05:51)
[2020-09-29 05:59] LABS: Calcium 8.8 MG/DL (8.5-10.1); Osmolality,Calculated 282.4 MOS/KG (273-304); Potassium 4.3 MMOL/L (3.5-5.1)
[2020-09-29 06:05] LABS: Lymphocytes 1 % (20-55); Platelet Estimate Normal; Segmented Neutrophils 97 % (50-85); Total Cells Counted 100
[2020-09-29 06:55] LABS: Ferritin 2259.5 ng/mL (8-252)
[2020-09-29] MEDS: CETIRIZINE 10 MG TABLET PO SCH (08:37)
[2020-09-29] MEDS: ASCORBIC ACID 500 MG TABLET PO SCH ×2 (08:37→20:36)
[2020-09-29] MEDS: ZINC GLUCONATE 50 MG TABLET PO SCH (08:37)
[2020-09-29] MEDS: CHOLECALCIFEROL 5,000 UNIT TABLET PO SCH (08:37)
[2020-09-29] MEDS: FAMOTIDINE 20 MG TABLET PO SCH ×2 (08:37→20:36)
[2020-09-29] MEDS: ENOXAPARIN 60 MG/0.6 ML SYRINGE SUBCUT SCH ×2 (08:37→20:37)
[2020-09-29] MEDS: BUDESONIDE/FORMOTEROL 160-4.5 INHALER 6 GM INH SCH ×2 (08:37→20:38)
[2020-09-29] MEDS: DEXMEDETOMIDINE 400 MCG in SODIUM CHLORIDE 0.9% 96 ML IV PRN ×2 (14:35→20:37)
[2020-09-29] MEDS: MELATONIN 3 MG TABLET PO SCH (20:36)
[2020-09-30] MEDS: DEXMEDETOMIDINE 400 MCG in SODIUM CHLORIDE 0.9% 96 ML IV PRN ×2 (04:18→11:33)
[2020-09-30 04:31] LABS: ABG Base Excess 1.5 MMOL/L (-2.5-2.5); ABG HCO3 25.3 MMOL/L (20-26); ABG PCO2 40.3 MM HG (35-48); ABG PH 7.418 (7.35-7.45); ABG PO2 48.5 MM HG (80-95); ABG TCO2 22.5 MMOL/L (23-27)
[2020-09-30] MEDS: methylPREDNISolone SOD SUC 40 MG/1 ML VIAL IV SCH ×2 (05:57→13:17)
[2020-09-30] MEDS: LEVOTHYROXINE 112 MCG TABLET PO SCH (06:03)
[2020-09-30 06:21] LABS: Basophils % 0.2 % (0.0-0.8); Hematocrit 39.6 VOL% (35.7-47.0); Hemoglobin 13.8 GM/DL (12.0-16.0); Immature Granulocytes % 0.9 %; Immature Granulocytes Absolute 0.11 #; Lymphocytes # 0.4 10*3/uL (1.4-4.0); Lymphocytes % 3.4 % (21.3-54.2); Mean Corpuscular HGB Conc 34.8 GM/DL (32-36); Mean Corpuscular Volume 86.5 FL (87-102); Mean Platelet Volume 10.9 FL (9.6-12.0); Monocytes % 5.2 % (1.7-12.7); Neutrophils % 90.3 % (38.7-73.9); Platelet Count 175 T/CUMM (130-400); Red Blood Count 4.58 MC/CUMM (3.8-5.5); Red Cell Distribution Width 12.6 % (9.3-17.3); White Blood Count 12.2 T/CUMM (4-12)
[2020-09-30 06:43] LABS: Hypochromasia Slight; Lymphocytes 2 % (20-55); Microcytosis Slight; Platelet Estimate Adequate; Segmented Neutrophils 93 % (50-85); Total Cells Counted 100
[2020-09-30 06:46] LABS: Albumin 1.8 G/DL (3.4-5.0); Bilirubin,Total 2.4 MG/DL (0.20-1.00); Calcium 8.4 MG/DL (8.5-10.1); Ferritin 1655.1 ng/mL (8-252); Osmolality,Calculated 283.5 MOS/KG (273-304); Potassium 4.3 MMOL/L (3.5-5.1); Total Protein 6.2 G/DL (6.4-8.2)
[2020-09-30] MEDS: SODIUM CHLORIDE 0.9% 1,000 ML IV SCH ×2 (07:47→10:49)
[2020-09-30] MEDS: FAMOTIDINE 20 MG TABLET PO SCH (08:32)
[2020-09-30] MEDS: ENOXAPARIN 60 MG/0.6 ML SYRINGE SUBCUT SCH (08:32)
[2020-09-30] MEDS: ASCORBIC ACID 500 MG TABLET PO SCH (08:32)
[2020-09-30] MEDS: BUDESONIDE/FORMOTEROL 160-4.5 INHALER 6 GM INH SCH (08:33)
[2020-09-30] MEDS: CETIRIZINE 10 MG TABLET PO SCH (08:33)
[2020-09-30] MEDS: ZINC GLUCONATE 50 MG TABLET PO SCH (08:33)
[2020-09-30] MEDS: CHOLECALCIFEROL 5,000 UNIT TABLET PO SCH (08:33)
[2020-09-30] MEDS ORDERED: METOPROLOL TARTRATE 5 MG/5 ML VIAL IV ONE ×5 (15:05→15:15)
[2020-09-30] MEDS ORDERED: DILTIAZEM 25 MG/5 ML VIAL IV ONE (15:17)
[2020-09-30] MEDS ORDERED: DILTIAZEM 50 MG/10 ML VIAL IV ONE ×2 (15:18→15:21)
[2020-09-30] MEDS ORDERED: ETOMIDATE 20 MG/10 ML VIAL IV ONE (15:35)
[2020-09-30] MEDS ORDERED: SUCCINYLCHOLINE 200 MG/10 ML VIAL ONE (15:36)
[2020-09-30] MEDS ORDERED: fentaNYL INJ 1,250 MCG in SODIUM CHLORIDE 0.9% 225 ML IV PRN (15:48)
[2020-09-30] MEDS ORDERED: SODIUM CHLORIDE 0.9% 1,000 ML IV ONE ×2 (15:49→20:47)
[2020-09-30] MEDS: DILTIAZEM INJ 100 MG in SODIUM CHLORIDE 0.9% 100 ML IV SCH (15:50)
[2020-09-30] MEDS ORDERED: MIDAZOLAM 2 MG/2 ML VIAL IV ONE (16:05)
[2020-09-30] MEDS ORDERED: MIDAZOLAM 2 MG/2 ML VIAL ONE (16:06)
[2020-09-30] MEDS ORDERED: propofoL 200 MG/20 ML VIAL IV ONE ×3 (16:07→16:12)
[2020-09-30] MEDS: MIDAZOLAM 100 MG in SODIUM CHLORIDE 0.9% 80 ML IV PRN (16:25)
[2020-09-30 17:28] LABS: ABG Base Excess -3.2 MMOL/L (-2.5-2.5); ABG HCO3 21.6 MMOL/L (20-26); ABG Oxygen Saturation 88.9 % (95-100); ABG PCO2 53.1 MM HG (35-48); ABG PH 7.275 (7.35-7.45); ABG TCO2 21.8 MMOL/L (23-27)
[2020-09-30] MEDS ORDERED: SODIUM CHLORIDE 0.9% 500 ML IV ONE (18:04)
[2020-09-30] MEDS ORDERED: SODIUM CHLORIDE 0.9% 1,000 ML IV SCH (18:08)
[2020-09-30] MEDS ORDERED: NOREPINEPHRINE 4 MG/4 ML VIAL IV ONE (18:49)
[2020-09-30] MEDS: NOREPINEPHRINE 8 MG in SODIUM CHLORIDE 0.9% 242 ML IV PRN (18:55)
[2020-09-30] MEDS: CISATRACURIUM 200 MG in SODIUM CHLORIDE 0.9% 180 ML IV PRN ×2 (18:55→23:10)
[2020-09-30 20:00] LABS: ABG Base Excess -5.8 MMOL/L (-2.5-2.5); ABG HCO3 19.4 MMOL/L (20-26); ABG Oxygen Saturation 82.2 % (95-100); ABG PCO2 59.6 MM HG (35-48); ABG TCO2 21.1 MMOL/L (23-27)
[2020-09-30 20:07] LABS: ABG PH 7.209 (7.35-7.45)
[2020-09-30] MEDS ORDERED: SODIUM BICARBONATE 50 MEQ/50 ML VIAL IV ONE (20:47)
[2020-09-30] MEDS ORDERED: SODIUM BICARBONATE 50 MEQ/50 ML SYRINGE IV ONE (20:49)
[2020-09-30] MEDS: fentaNYL INJ 5,000 MCG in SODIUM CHLORIDE 0.9% 150 ML IV PRN (21:12)
[2020-09-30] MEDS ORDERED: PHENYLEPHRINE DRIP 40 MG/250 ML PREMIX IV ONE (21:28)
[2020-09-30] MEDS ORDERED: PHENYLEPHRINE DRIP 40 MG/250 ML PREMIX IV PRN (21:29)
[2020-09-30] MEDS ORDERED: AMIODARONE INJ 150 MG in DEXTROSE 5% 100 ML IV ONE (21:55)
[2020-09-30] MEDS ORDERED: AMIODARONE 450 MG/9 ML VIAL IV ONE (21:56)
[2020-09-30] MEDS ORDERED: AMIODARONE 150 MG/3 ML VIAL ONE (21:56)
[2020-09-30] MEDS ORDERED: AMIODARONE INJ 450 MG in DEXTROSE 5% 241 ML IV SCH (22:00)
[2020-09-30 22:12] LABS: Albumin 1.8 G/DL (3.4-5.0); Bilirubin,Total 0.7 MG/DL (0.20-1.00); Calcium 7.3 MG/DL (8.5-10.1); Osmolality,Calculated 307.3 MOS/KG (273-304); Potassium 4.5 MMOL/L (3.5-5.1); Total Protein 5.9 G/DL (6.4-8.2)
[2020-09-30] MEDS: PHENYLEPHRINE INJ 160 MG in SODIUM CHLORIDE 0.9% 234 ML IV PRN (23:11)
[2020-10-01] MEDS: SODIUM CHLORIDE 0.9% 1,000 ML IV SCH ×2 (00:09→14:56)
[2020-10-01] MEDS: NOREPINEPHRINE 8 MG in SODIUM CHLORIDE 0.9% 242 ML IV PRN ×2 (00:21→04:53)
[2020-10-01] MEDS: BUDESONIDE/FORMOTEROL 160-4.5 INHALER 6 GM INH SCH ×3 (00:55→20:27)
[2020-10-01] MEDS: ASCORBIC ACID 500 MG TABLET PO SCH ×3 (00:55→20:26)
[2020-10-01] MEDS: ENOXAPARIN 60 MG/0.6 ML SYRINGE SUBCUT SCH ×2 (00:55→08:01)
[2020-10-01] MEDS: methylPREDNISolone SOD SUC 40 MG/1 ML VIAL IV SCH ×4 (00:55→20:26)
[2020-10-01] MEDS: MELATONIN 3 MG TABLET PO SCH ×2 (00:55→20:26)
[2020-10-01] MEDS: FAMOTIDINE 20 MG TABLET PO SCH ×3 (00:55→20:26)
[2020-10-01] MEDS: MIDAZOLAM 100 MG in SODIUM CHLORIDE 0.9% 80 ML IV PRN ×3 (03:05→21:11)
[2020-10-01] MEDS: CISATRACURIUM 200 MG in SODIUM CHLORIDE 0.9% 180 ML IV PRN ×4 (03:25→19:40)
[2020-10-01] MEDS: DILTIAZEM INJ 100 MG in SODIUM CHLORIDE 0.9% 100 ML IV SCH (03:32)
[2020-10-01 03:46] LABS: ABG HCO3 18.8 MMOL/L (20-26); ABG Oxygen Saturation 92.4 % (95-100); ABG PO2 86.9 MM HG (80-95); ABG TCO2 20.9 MMOL/L (23-27); Allen Test Positive; Pt O2 Delivery Device Ventilator
[2020-10-01 03:51] LABS: ABG PCO2 69.4 MM HG (35-48)
[2020-10-01] MEDS ORDERED: SODIUM BICARBONATE 50 MEQ/50 ML VIAL IV ONE ×2 (04:05→11:21)
[2020-10-01] MEDS: PHENYLEPHRINE INJ 160 MG in SODIUM CHLORIDE 0.9% 234 ML IV PRN ×3 (04:37→16:00)
[2020-10-01] MEDS: AMIODARONE INJ 450 MG in DEXTROSE 5% 241 ML IV SCH ×2 (05:48→21:35)
[2020-10-01 05:55] LABS: Basophils # 0.2 10*3/uL (0.0-0.2); Basophils % 0.4 % (0.0-0.8); Hematocrit 49.2 VOL% (35.7-47.0); Hemoglobin 15.2 GM/DL (12.0-16.0); Immature Granulocytes % 4.4 %; Immature Granulocytes Absolute 2.08 #; Lymphocytes # 0.9 10*3/uL (1.4-4.0); Mean Corpuscular HGB Conc 30.9 GM/DL (32-36); Neutrophils % 86.2 % (38.7-73.9); Platelet Count 302 T/CUMM (130-400); Red Blood Count 5.18 MC/CUMM (3.8-5.5)
[2020-10-01 06:01] LABS: Albumin 2.1 G/DL (3.4-5.0); Bilirubin,Total 1.4 MG/DL (0.20-1.00); Calcium 7.8 MG/DL (8.5-10.1); Ferritin 2718.7 ng/mL (8-252); Osmolality,Calculated 299.8 MOS/KG (273-304); Potassium 4.4 MMOL/L (3.5-5.1); Total Protein 6.8 G/DL (6.4-8.2)
[2020-10-01 06:13] LABS: Hypochromasia Slight; Lymphocytes 2 % (20-55); Microcytosis Slight; Platelet Estimate Adequate; Segmented Neutrophils 91 % (50-85); Total Cells Counted 100
[2020-10-01] MEDS ORDERED: AMIODARONE 450 MG/9 ML VIAL IV ONE (06:17)
[2020-10-01] MEDS: LEVOTHYROXINE 112 MCG TABLET PO SCH (07:05)
[2020-10-01] MEDS ORDERED: AZTREONAM 2,000 MG in SODIUM CHLORIDE 0.9% 100 ML IV SCH (08:00)
[2020-10-01] MEDS: CHOLECALCIFEROL 5,000 UNIT TABLET PO SCH (08:01)
[2020-10-01] MEDS: ZINC GLUCONATE 50 MG TABLET PO SCH (08:01)
[2020-10-01] MEDS: CETIRIZINE 10 MG TABLET PO SCH (08:01)
[2020-10-01] MEDS ORDERED: VANCOMYCIN INJ 2,000 MG in SODIUM CHLORIDE 0.9% 500 ML IV ONE (08:30)
[2020-10-01] MEDS: NOREPINEPHRINE 16 MG in SODIUM CHLORIDE 0.9% 234 ML IV PRN (10:15)
[2020-10-01 11:10] LABS: ABG Base Excess -9.7 MMOL/L (-2.5-2.5); ABG HCO3 16.8 MMOL/L (20-26); ABG Oxygen Saturation 94.6 % (95-100); ABG PO2 88.5 MM HG (80-95); ABG TCO2 20.2 MMOL/L (23-27)
[2020-10-01 11:16] LABS: ABG PCO2 69.8 MM HG (35-48); ABG PH 7.115 (7.35-7.45)
[2020-10-01] MEDS: INSULIN REGULAR 100 UNIT/ML SUBCUT SCH ×2 (12:08→18:04)
[2020-10-01] MEDS: CEFEPIME 1,000 MG in SODIUM CHLORIDE 0.9% 100 ML IV SCH ×2 (15:55→20:27)
[2020-10-01] MEDS: SODIUM BICARB INJ 100 MEQ in DEXTROSE 5% 1,000 ML IV SCH (16:36)
[2020-10-01 18:33] LABS: Bilirubin,Urine Negative (Negative); Blood, Urine Small mg/dL (Negative); Glucose,Urine (UA) Negative (Negative); Hyaline Casts,Urine 232 /LPF (0-3); Ketones,Urine Negative (Negative); Mucus,Urine Many /LPF (Occasional); Nitrite,Urine Negative (Negative); Protein,Urine 30 MG/DL; Urine Appearance CLOUDY (Clear); Urine Color Yellow (Yellow); Urine Specific Gravity 1.014 (1.001-1.035); Urine Urobilinogen < 2.0 EU/DL (0.2-1.0)
[2020-10-01] MEDS: fentaNYL INJ 5,000 MCG in SODIUM CHLORIDE 0.9% 150 ML IV PRN (19:02)
[2020-10-01] MEDS: ENOXAPARIN 100 MG/ML SYRINGE SUBCUT SCH (20:33)
[2020-10-01] MEDS: VANCOMYCIN INJ 1,500 MG in SODIUM CHLORIDE 0.9% 250 ML IV SCH (20:33)
[2020-10-02] MEDS: AMIODARONE INJ 450 MG in DEXTROSE 5% 241 ML IV SCH ×3 (00:45→13:48)
[2020-10-02] MEDS: INSULIN REGULAR 100 UNIT/ML SUBCUT SCH ×4 (01:20→17:35)
[2020-10-02] MEDS: CISATRACURIUM 200 MG in SODIUM CHLORIDE 0.9% 180 ML IV PRN ×5 (01:20→23:39)
[2020-10-02] MEDS: NOREPINEPHRINE 16 MG in SODIUM CHLORIDE 0.9% 234 ML IV PRN (01:45)
[2020-10-02] MEDS: PHENYLEPHRINE INJ 160 MG in SODIUM CHLORIDE 0.9% 234 ML IV PRN ×4 (03:32→23:16)
[2020-10-02 04:31] LABS: ABG Base Excess -1.3 MMOL/L (-2.5-2.5); ABG HCO3 23.3 MMOL/L (20-26); ABG Oxygen Saturation 97.1 % (95-100); ABG PH 7.214 (7.35-7.45); ABG PO2 98.9 MM HG (80-95); ABG TCO2 26.1 MMOL/L (23-27); Allen Test Positive; Pt O2 Delivery Device Ventilator
[2020-10-02 05:02] LABS: Basophils # 0.2 10*3/uL (0.0-0.2); Basophils % 0.4 % (0.0-0.8); Hematocrit 44.2 VOL% (35.7-47.0); Hemoglobin 14.1 GM/DL (12.0-16.0); Immature Granulocytes % 4.3 %; Immature Granulocytes Absolute 1.45 #; Lymphocytes # 0.7 10*3/uL (1.4-4.0); Lymphocytes % 2.1 % (21.3-54.2); Mean Corpuscular HGB Conc 31.9 GM/DL (32-36); Mean Corpuscular Volume 92.5 FL (87-102); Mean Platelet Volume 11.5 FL (9.6-12.0); Monocytes % 6.2 % (1.7-12.7); NRBC # 0.09 10*3/uL; Red Blood Count 4.78 MC/CUMM (3.8-5.5); Red Cell Distribution Width 13.4 % (9.3-17.3)
[2020-10-02 05:08] LABS: Platelet Count 190 T/CUMM (130-400)
[2020-10-02] MEDS: methylPREDNISolone SOD SUC 40 MG/1 ML VIAL IV SCH ×3 (05:15→21:13)
[2020-10-02 05:29] LABS: Albumin 1.9 G/DL (3.4-5.0); Bilirubin,Total 0.6 MG/DL (0.20-1.00); Calcium 7.6 MG/DL (8.5-10.1); Osmolality,Calculated 305.3 MOS/KG (273-304); Potassium 4.2 MMOL/L (3.5-5.1); Total Protein 6.2 G/DL (6.4-8.2)
[2020-10-02 05:31] LABS: Ferritin 2485.6 ng/mL (8-252)
[2020-10-02] MEDS: CEFEPIME 1,000 MG in SODIUM CHLORIDE 0.9% 100 ML IV SCH ×3 (05:35→17:35)
[2020-10-02] MEDS: SODIUM BICARB INJ 100 MEQ in DEXTROSE 5% 1,000 ML IV SCH ×2 (06:25→19:20)
[2020-10-02] MEDS: LEVOTHYROXINE 112 MCG TABLET PO SCH (06:25)
[2020-10-02 07:07] LABS: Band Neutrophils 1 % (0-10); Eosinophils 1 % (0-10); Lymphocytes 4 % (20-55); Nucleated Red Blood Cells 1 (0-5); Segmented Neutrophils 91 % (50-85); Total Cells Counted 100
[2020-10-02 07:08] LABS: Platelet Estimate Normal
[2020-10-02] MEDS: MIDAZOLAM 100 MG in SODIUM CHLORIDE 0.9% 80 ML IV PRN ×2 (07:10→17:30)
[2020-10-02] MEDS: VANCOMYCIN INJ 1,500 MG in SODIUM CHLORIDE 0.9% 250 ML IV SCH (09:06)
[2020-10-02] MEDS: BUDESONIDE/FORMOTEROL 160-4.5 INHALER 6 GM INH SCH ×2 (09:25→21:13)
[2020-10-02] MEDS: ASCORBIC ACID 500 MG TABLET PO SCH ×2 (09:25→21:13)
[2020-10-02] MEDS: ENOXAPARIN 100 MG/ML SYRINGE SUBCUT SCH ×2 (09:25→21:13)
[2020-10-02] MEDS: ZINC GLUCONATE 50 MG TABLET PO SCH (09:25)
[2020-10-02] MEDS: FAMOTIDINE 20 MG TABLET PO SCH ×2 (09:25→21:13)
[2020-10-02] MEDS: CETIRIZINE 10 MG TABLET PO SCH (09:25)
[2020-10-02] MEDS: CHOLECALCIFEROL 5,000 UNIT TABLET PO SCH (09:25)
[2020-10-02 10:13] LABS: ABG Base Excess 0.3 MMOL/L (-2.5-2.5); ABG HCO3 24.7 MMOL/L (20-26); ABG Oxygen Saturation 97.7 % (95-100); ABG PCO2 50.7 MM HG (35-48); ABG PH 7.334 (7.35-7.45); ABG PO2 93.4 MM HG (80-95); ABG TCO2 23.8 MMOL/L (23-27)
[2020-10-02] MEDS: fentaNYL INJ 5,000 MCG in SODIUM CHLORIDE 0.9% 150 ML IV PRN (11:55)
[2020-10-02] MEDS ORDERED: ASPIRIN 325 MG TABLET PO ONE (15:08)
[2020-10-02 15:43] LABS: Risk Ratio 4.91; VLDL Cholesterol 33.2 MG/DL
[2020-10-02] MEDS: AMIODARONE 200 MG TABLET PO SCH (21:13)
[2020-10-02] MEDS ORDERED: VANCOMYCIN INJ 1,500 MG in SODIUM CHLORIDE 0.9% 500 ML IV SCH (21:30)
[2020-10-02] MEDS: MELATONIN 3 MG TABLET PO SCH (21:39)
[2020-10-03] MEDS: CEFEPIME 1,000 MG in SODIUM CHLORIDE 0.9% 100 ML IV SCH ×5 (00:05→23:49)
[2020-10-03] MEDS: INSULIN REGULAR 100 UNIT/ML SUBCUT SCH ×4 (00:29→17:44)
[2020-10-03 01:41] LABS: ABG Base Excess 1.9 MMOL/L (-2.5-2.5); ABG Oxygen Saturation 97.5 % (95-100); ABG PCO2 41.2 MM HG (35-48); ABG PH 7.417 (7.35-7.45); ABG PO2 91.5 MM HG (80-95); ABG TCO2 23.5 MMOL/L (23-27)
[2020-10-03] MEDS: MIDAZOLAM 100 MG in SODIUM CHLORIDE 0.9% 80 ML IV PRN ×2 (04:13→15:00)
[2020-10-03] MEDS: CISATRACURIUM 200 MG in SODIUM CHLORIDE 0.9% 180 ML IV PRN ×2 (04:20→21:17)
[2020-10-03 04:45] LABS: Basophils # 0.1 10*3/uL (0.0-0.2); Basophils % 0.4 % (0.0-0.8); Hematocrit 36.3 VOL% (35.7-47.0); Hemoglobin 11.9 GM/DL (12.0-16.0); Immature Granulocytes % 3.9 %; Lymphocytes # 0.9 10*3/uL (1.4-4.0); Lymphocytes % 3.3 % (21.3-54.2); Mean Corpuscular HGB Conc 32.8 GM/DL (32-36); Mean Corpuscular Volume 90.3 FL (87-102); Mean Platelet Volume 11.4 FL (9.6-12.0); Monocytes % 5.9 % (1.7-12.7); NRBC # 0.16 10*3/uL; Neutrophils % 86.5 % (38.7-73.9); Platelet Count 172 T/CUMM (130-400); Red Blood Count 4.02 MC/CUMM (3.8-5.5); Red Cell Distribution Width 13.7 % (9.3-17.3); White Blood Count 25.6 T/CUMM (4-12)
[2020-10-03] MEDS: methylPREDNISolone SOD SUC 40 MG/1 ML VIAL IV SCH ×3 (05:11→20:35)
[2020-10-03] MEDS: PHENYLEPHRINE INJ 160 MG in SODIUM CHLORIDE 0.9% 234 ML IV PRN ×2 (05:11→14:30)
[2020-10-03 05:22] LABS: Albumin 1.6 G/DL (3.4-5.0); Bilirubin,Total 0.7 MG/DL (0.20-1.00); Calcium 7.6 MG/DL (8.5-10.1); Osmolality,Calculated 300.6 MOS/KG (273-304); Potassium 4.2 MMOL/L (3.5-5.1); Total Protein 5.4 G/DL (6.4-8.2)
[2020-10-03 05:28] LABS: Ferritin 1772.7 ng/mL (8-252)
[2020-10-03] MEDS: LEVOTHYROXINE 112 MCG TABLET PO SCH (06:23)
[2020-10-03 06:49] LABS: Hypochromasia 1+; Lymphocytes 2 % (20-55); Platelet Estimate Normal; Polychromasia Few; Segmented Neutrophils 92 % (50-85); Total Cells Counted 100
[2020-10-03] MEDS: fentaNYL INJ 5,000 MCG in SODIUM CHLORIDE 0.9% 150 ML IV PRN (07:10)
[2020-10-03] MEDS: CHOLECALCIFEROL 5,000 UNIT TABLET PO SCH (08:11)
[2020-10-03] MEDS: ASCORBIC ACID 500 MG TABLET PO SCH ×2 (08:11→20:35)
[2020-10-03] MEDS: CETIRIZINE 10 MG TABLET PO SCH (08:11)
[2020-10-03] MEDS: AMIODARONE 200 MG TABLET PO SCH (08:11)
[2020-10-03] MEDS: ZINC GLUCONATE 50 MG TABLET PO SCH (08:11)
[2020-10-03] MEDS: FAMOTIDINE 20 MG TABLET PO SCH ×2 (08:11→20:35)
[2020-10-03] MEDS: ENOXAPARIN 100 MG/ML SYRINGE SUBCUT SCH ×2 (08:11→20:35)
[2020-10-03] MEDS: BUDESONIDE/FORMOTEROL 160-4.5 INHALER 6 GM INH SCH ×2 (09:40→20:36)
[2020-10-03] MEDS: SODIUM BICARB INJ 100 MEQ in DEXTROSE 5% 1,000 ML IV SCH ×2 (10:21→17:00)
[2020-10-03] MEDS ORDERED: FUROSEMIDE 40 MG/4 ML VIAL IV ONE (11:52)
[2020-10-03] MEDS: metroNIDAZOLE INJ 500 MG/100 ML PREMIX IV SCH ×2 (13:33→20:34)
[2020-10-03] MEDS: MELATONIN 3 MG TABLET PO SCH (20:35)
[2020-10-04] MEDS: INSULIN REGULAR 100 UNIT/ML SUBCUT SCH ×5 (00:50→23:50)
[2020-10-04] MEDS: SODIUM BICARB INJ 100 MEQ in DEXTROSE 5% 1,000 ML IV SCH ×3 (00:50→23:08)
[2020-10-04] MEDS: MIDAZOLAM 100 MG in SODIUM CHLORIDE 0.9% 80 ML IV PRN ×2 (02:16→13:51)
[2020-10-04] MEDS: metroNIDAZOLE INJ 500 MG/100 ML PREMIX IV SCH ×3 (03:35→21:21)
[2020-10-04] MEDS: fentaNYL INJ 5,000 MCG in SODIUM CHLORIDE 0.9% 150 ML IV PRN ×2 (03:36→16:30)
[2020-10-04] MEDS: CISATRACURIUM 200 MG in SODIUM CHLORIDE 0.9% 180 ML IV PRN ×4 (03:52→23:56)
[2020-10-04 04:58] LABS: ABG Base Excess 8.8 MMOL/L (-2.5-2.5); ABG HCO3 32.2 MMOL/L (20-26); ABG Oxygen Saturation 96.9 % (95-100); ABG PCO2 39.8 MM HG (35-48); ABG PH 7.526 (7.35-7.45); ABG PO2 87.4 MM HG (80-95); ABG TCO2 33.4 MMOL/L (23-27); Allen Test Positive; Pt O2 Delivery Device Ventilator
[2020-10-04] MEDS: CEFEPIME 1,000 MG in SODIUM CHLORIDE 0.9% 100 ML IV SCH ×4 (05:05→23:45)
[2020-10-04] MEDS: methylPREDNISolone SOD SUC 40 MG/1 ML VIAL IV SCH ×3 (05:06→21:22)
[2020-10-04 05:30] LABS: Albumin 1.6 G/DL (3.4-5.0); Bilirubin,Total 1.2 MG/DL (0.20-1.00); Calcium 7.5 MG/DL (8.5-10.1); Potassium 4.2 MMOL/L (3.5-5.1); Total Protein 5.2 G/DL (6.4-8.2)
[2020-10-04] MEDS: LEVOTHYROXINE 112 MCG TABLET PO SCH (06:32)
[2020-10-04] MEDS: ENOXAPARIN 100 MG/ML SYRINGE SUBCUT SCH ×2 (09:18→21:22)
[2020-10-04] MEDS: FAMOTIDINE 20 MG TABLET PO SCH ×2 (09:19→21:22)
[2020-10-04] MEDS: ZINC GLUCONATE 50 MG TABLET PO SCH (09:19)
[2020-10-04] MEDS: CETIRIZINE 10 MG TABLET PO SCH (09:19)
[2020-10-04] MEDS: AMIODARONE 200 MG TABLET PO SCH (09:19)
[2020-10-04] MEDS: ASCORBIC ACID 500 MG TABLET PO SCH ×2 (09:19→21:22)
[2020-10-04] MEDS: CHOLECALCIFEROL 5,000 UNIT TABLET PO SCH (09:19)
[2020-10-04] MEDS: BUDESONIDE/FORMOTEROL 160-4.5 INHALER 6 GM INH SCH ×2 (09:20→21:23)
[2020-10-04] MEDS ORDERED: POTASSIUM PHOSPHATE 30 MMOL in SODIUM CHLORIDE 0.9% 250 ML IV ONE (10:00)
[2020-10-04] MEDS: VANCOMYCIN INJ 1,500 MG in SODIUM CHLORIDE 0.9% 500 ML IV SCH (10:22)
[2020-10-04 11:30] LABS: Basophils % 0.2 % (0.0-0.8); Hematocrit 33.3 VOL% (35.7-47.0); Hemoglobin 10.5 GM/DL (12.0-16.0); Immature Granulocytes % 3.6 %; Lymphocytes # 0.9 10*3/uL (1.4-4.0); Lymphocytes % 4.2 % (21.3-54.2); Mean Corpuscular HGB Conc 31.5 GM/DL (32-36); Monocytes % 5.2 % (1.7-12.7); NRBC # 0.07 10*3/uL; Neutrophils % 86.8 % (38.7-73.9); Platelet Count 139 T/CUMM (130-400); Red Blood Count 3.58 MC/CUMM (3.8-5.5); White Blood Count 22.3 T/CUMM (4-12)
[2020-10-04 11:50] LABS: Band Neutrophils 8 % (0-10); Lymphocytes 4 % (20-55); Nucleated Red Blood Cells 1 (0-5); Platelet Estimate Adequate; Segmented Neutrophils 83 % (50-85); Total Cells Counted 100
[2020-10-04 11:51] LABS: Anisocytosis 1+; Macrocytosis Slight; Spherocytes Few
[2020-10-04] MEDS: PHENYLEPHRINE INJ 160 MG in SODIUM CHLORIDE 0.9% 234 ML IV PRN (12:40)
[2020-10-04] MEDS: MELATONIN 3 MG TABLET PO SCH (21:22)
[2020-10-04] MEDS ORDERED: ALBUMIN 25% 12.5 GM/50 ML VIAL IV ONE (23:02)
[2020-10-05] MEDS: MIDAZOLAM 100 MG in SODIUM CHLORIDE 0.9% 80 ML IV PRN ×3 (01:00→22:47)
[2020-10-05] MEDS: metroNIDAZOLE INJ 500 MG/100 ML PREMIX IV SCH ×3 (03:37→22:46)
[2020-10-05 04:01] LABS: ABG Base Excess 5.2 MMOL/L (-2.5-2.5); ABG HCO3 29.1 MMOL/L (20-26); ABG Oxygen Saturation 92.9 % (95-100); ABG PCO2 45.2 MM HG (35-48); ABG PH 7.433 (7.35-7.45); ABG PO2 65.9 MM HG (80-95); ABG TCO2 27.5 MMOL/L (23-27); Basophils # 0.1 10*3/uL (0.0-0.2); Basophils % 0.4 % (0.0-0.8); Hemoglobin 9.7 GM/DL (12.0-16.0); Immature Granulocytes Absolute 1.16 #; Lymphocytes # 0.7 10*3/uL (1.4-4.0); Lymphocytes % 3.7 % (21.3-54.2); Mean Corpuscular HGB Conc 32.3 GM/DL (32-36); Mean Corpuscular Volume 91.7 FL (87-102); Mean Platelet Volume 11.7 FL (9.6-12.0); Monocytes % 5.4 % (1.7-12.7); NRBC # 0.09 10*3/uL; Neutrophils % 84.5 % (38.7-73.9); Platelet Count 121 T/CUMM (130-400); Red Blood Count 3.27 MC/CUMM (3.8-5.5); Red Cell Distribution Width 13.5 % (9.3-17.3); White Blood Count 19.4 T/CUMM (4-12)
[2020-10-05] MEDS: CEFEPIME 1,000 MG in SODIUM CHLORIDE 0.9% 100 ML IV SCH ×3 (04:06→20:32)
[2020-10-05] MEDS: methylPREDNISolone SOD SUC 40 MG/1 ML VIAL IV SCH ×3 (04:06→20:33)
[2020-10-05] MEDS: INSULIN REGULAR 100 UNIT/ML SUBCUT SCH ×5 (04:06→20:32)
[2020-10-05 04:21] LABS: Band Neutrophils 1 % (0-10); Hypochromasia 1+; Lymphocytes 4 % (20-55); Microcytosis 1+; Platelet Estimate Normal; Segmented Neutrophils 86 % (50-85); Total Cells Counted 100
[2020-10-05 04:29] LABS: Calcium 7.3 MG/DL (8.5-10.1); Osmolality,Calculated 293.1 MOS/KG (273-304); Potassium 4.6 MMOL/L (3.5-5.1)
[2020-10-05] MEDS: LEVOTHYROXINE 112 MCG TABLET PO SCH (05:32)
[2020-10-05 06:35] LABS: Albumin 1.6 G/DL (3.4-5.0); Bilirubin,Direct 0.21 MG/DL (0.0-0.20); Bilirubin,Indirect 0.7 MG/DL (0.0-1.0); Bilirubin,Total 0.9 MG/DL (0.20-1.00); Total Protein 4.8 G/DL (6.4-8.2)
[2020-10-05] MEDS: CETIRIZINE 10 MG TABLET PO SCH (08:13)
[2020-10-05] MEDS: ZINC GLUCONATE 50 MG TABLET PO SCH (08:13)
[2020-10-05] MEDS: AMIODARONE 200 MG TABLET PO SCH (08:13)
[2020-10-05] MEDS: ASCORBIC ACID 500 MG TABLET PO SCH ×2 (08:13→20:33)
[2020-10-05] MEDS: BUDESONIDE/FORMOTEROL 160-4.5 INHALER 6 GM INH SCH ×2 (08:14→20:34)
[2020-10-05] MEDS: CHOLECALCIFEROL 5,000 UNIT TABLET PO SCH (08:14)
[2020-10-05] MEDS: ENOXAPARIN 100 MG/ML SYRINGE SUBCUT SCH ×2 (08:14→20:31)
[2020-10-05] MEDS: FAMOTIDINE 20 MG TABLET PO SCH ×2 (08:14→20:32)
[2020-10-05] MEDS: VANCOMYCIN INJ 1,500 MG in SODIUM CHLORIDE 0.9% 500 ML IV SCH (09:45)
[2020-10-05] MEDS: fentaNYL INJ 5,000 MCG in SODIUM CHLORIDE 0.9% 150 ML IV PRN (10:07)
[2020-10-05] MEDS ORDERED: SODIUM CHLORIDE 0.9% 500 ML IV ONE (10:15)
[2020-10-05] MEDS ORDERED: MORPHINE 2 MG/1 ML SYRINGE IV ONE (14:28)
[2020-10-05] MEDS ORDERED: NOREPINEPHRINE 4 MG/4 ML VIAL IV ONE (14:39)
[2020-10-05] MEDS ORDERED: SODIUM BICARBONATE 50 MEQ/50 ML VIAL IV ONE ×4 (14:58→15:05)
[2020-10-05] MEDS ORDERED: FUROSEMIDE 40 MG/4 ML VIAL IV ONE (16:25)
[2020-10-05] MEDS: SODIUM BICARB INJ 100 MEQ in DEXTROSE 5% 1,000 ML IV SCH (19:26)
[2020-10-05] MEDS: MELATONIN 3 MG TABLET PO SCH (20:33)
[2020-10-05] MEDS: CISATRACURIUM 200 MG in SODIUM CHLORIDE 0.9% 180 ML IV PRN (20:36)
[2020-10-05] MEDS: PHENYLEPHRINE INJ 160 MG in SODIUM CHLORIDE 0.9% 234 ML IV PRN (23:46)
[2020-10-06] MEDS: INSULIN REGULAR 100 UNIT/ML SUBCUT SCH ×6 (00:13→21:08)
[2020-10-06] MEDS: CEFEPIME 1,000 MG in SODIUM CHLORIDE 0.9% 100 ML IV SCH ×4 (01:33→21:20)
[2020-10-06 03:16] LABS: ABG Base Excess 7.3 MMOL/L (-2.5-2.5); ABG HCO3 31.1 MMOL/L (20-26); ABG Oxygen Saturation 93.9 % (95-100); ABG PCO2 46.6 MM HG (35-48); ABG PH 7.449 (7.35-7.45); ABG PO2 68.9 MM HG (80-95); ABG TCO2 29.4 MMOL/L (23-27)
[2020-10-06 03:33] LABS: Basophils # 0.1 10*3/uL (0.0-0.2); Basophils % 0.3 % (0.0-0.8); Hematocrit 28.3 VOL% (35.7-47.0); Hemoglobin 9.2 GM/DL (12.0-16.0); Immature Granulocytes % 10.4 %; Immature Granulocytes Absolute 2.25 #; Lymphocytes # 1.1 10*3/uL (1.4-4.0); Lymphocytes % 4.9 % (21.3-54.2); Mean Corpuscular HGB Conc 32.5 GM/DL (32-36); Mean Corpuscular Volume 91.3 FL (87-102); Mean Platelet Volume 12.1 FL (9.6-12.0); NRBC # 0.36 10*3/uL; Neutrophils % 77.4 % (38.7-73.9); Platelet Count 158 T/CUMM (130-400); Red Cell Distribution Width 13.7 % (9.3-17.3); White Blood Count 21.7 T/CUMM (4-12)
[2020-10-06 03:55] LABS: Calcium 7.3 MG/DL (8.5-10.1); Osmolality,Calculated 293.1 MOS/KG (273-304); Potassium 4.8 MMOL/L (3.5-5.1)
[2020-10-06 04:04] LABS: Band Neutrophils 1 % (0-10); Eosinophils 3 % (0-10); Lymphocytes 5 % (20-55); Nucleated Red Blood Cells 2 (0-5); Segmented Neutrophils 84 % (50-85); Total Cells Counted 100
[2020-10-06 04:05] LABS: Hypochromasia Slight; Microcytosis 1+; Polychromasia Slight
[2020-10-06 04:06] LABS: Platelet Estimate Adequate
[2020-10-06] MEDS: fentaNYL INJ 5,000 MCG in SODIUM CHLORIDE 0.9% 150 ML IV PRN ×2 (04:09→21:07)
[2020-10-06] MEDS: methylPREDNISolone SOD SUC 40 MG/1 ML VIAL IV SCH ×3 (04:10→21:06)
[2020-10-06] MEDS: LEVOTHYROXINE 112 MCG TABLET PO SCH (06:07)
[2020-10-06] MEDS: POLYETHYLENE GLYCOL POWDER 17 GM PACK PO SCH (08:26)
[2020-10-06] MEDS: CETIRIZINE 10 MG TABLET PO SCH (08:26)
[2020-10-06] MEDS: FAMOTIDINE 20 MG TABLET PO SCH ×2 (08:26→21:06)
[2020-10-06] MEDS: ZINC GLUCONATE 50 MG TABLET PO SCH (08:26)
[2020-10-06] MEDS: DOCUSATE SODIUM 100 MG CAPSULE PO PRN (08:26)
[2020-10-06] MEDS: ASCORBIC ACID 500 MG TABLET PO SCH ×2 (08:26→21:06)
[2020-10-06] MEDS: AMIODARONE 200 MG TABLET PO SCH (08:26)
[2020-10-06] MEDS: CHOLECALCIFEROL 5,000 UNIT TABLET PO SCH (08:26)
[2020-10-06] MEDS: BUDESONIDE/FORMOTEROL 160-4.5 INHALER 6 GM INH SCH ×2 (08:28→22:00)
[2020-10-06] MEDS: ENOXAPARIN 100 MG/ML SYRINGE SUBCUT SCH ×2 (08:28→21:06)
[2020-10-06] MEDS: DOCUSATE SODIUM 100 MG/10 ML UDCUP PO SCH ×2 (08:34→21:06)
[2020-10-06] MEDS: metroNIDAZOLE INJ 500 MG/100 ML PREMIX IV SCH ×3 (08:45→23:58)
[2020-10-06] MEDS: CISATRACURIUM 200 MG in SODIUM CHLORIDE 0.9% 180 ML IV PRN (09:10)
[2020-10-06] MEDS: MIDAZOLAM 100 MG in SODIUM CHLORIDE 0.9% 80 ML IV PRN ×2 (09:30→19:42)
[2020-10-06] MEDS: VANCOMYCIN INJ 1,500 MG in SODIUM CHLORIDE 0.9% 500 ML IV SCH (11:00)
[2020-10-06] MEDS: SODIUM BICARB INJ 100 MEQ in DEXTROSE 5% 1,000 ML IV SCH (13:17)
[2020-10-06] MEDS: MELATONIN 3 MG TABLET PO SCH (21:06)
[2020-10-07] MEDS: PHENYLEPHRINE INJ 160 MG in SODIUM CHLORIDE 0.9% 234 ML IV PRN ×2 (00:10→21:12)
[2020-10-07] MEDS: INSULIN REGULAR 100 UNIT/ML SUBCUT SCH ×6 (00:26→20:05)
[2020-10-07] MEDS: CEFEPIME 1,000 MG in SODIUM CHLORIDE 0.9% 100 ML IV SCH ×4 (02:32→20:04)
[2020-10-07 04:25] LABS: ABG Base Excess -4.2 MMOL/L (-2.5-2.5); ABG HCO3 21.2 MMOL/L (20-26); ABG Oxygen Saturation 94.8 % (95-100); ABG PCO2 40.2 MM HG (35-48); ABG PO2 82.2 MM HG (80-95); ABG TCO2 22.4 MMOL/L (23-27)
[2020-10-07 04:45] LABS: Basophils # 0.1 10*3/uL (0.0-0.2); Basophils % 0.3 % (0.0-0.8); Eosinophils % 0.1 % (0.00-10.9); Hematocrit 24.7 VOL% (35.7-47.0); Immature Granulocytes % 9.2 %; Immature Granulocytes Absolute 2.12 #; Lymphocytes # 1.1 10*3/uL (1.4-4.0); Lymphocytes % 4.8 % (21.3-54.2); Mean Corpuscular HGB Conc 32.4 GM/DL (32-36); Mean Corpuscular Volume 93.9 FL (87-102); Monocytes % 5.4 % (1.7-12.7); NRBC # 0.68 10*3/uL; Neutrophils % 80.2 % (38.7-73.9); Platelet Count 145 T/CUMM (130-400); Red Blood Count 2.63 MC/CUMM (3.8-5.5); Red Cell Distribution Width 13.8 % (9.3-17.3)
[2020-10-07 05:13] LABS: Band Neutrophils 1 % (0-10); Hypochromasia 1+; Lymphocytes 8 % (20-55); Microcytosis 1+; Nucleated Red Blood Cells 3 (0-5); Platelet Estimate Adequate; Segmented Neutrophils 86 % (50-85); Total Cells Counted 100
[2020-10-07] MEDS: methylPREDNISolone SOD SUC 40 MG/1 ML VIAL IV SCH ×3 (05:13→20:06)
[2020-10-07 05:43] LABS: Calcium 6.4 MG/DL (8.5-10.1); Osmolality,Calculated 290.1 MOS/KG (273-304); Potassium 4.3 MMOL/L (3.5-5.1)
[2020-10-07] MEDS: LEVOTHYROXINE 112 MCG TABLET PO SCH (06:02)
[2020-10-07] MEDS: metroNIDAZOLE INJ 500 MG/100 ML PREMIX IV SCH ×3 (06:02→23:34)
[2020-10-07] MEDS: ZINC GLUCONATE 50 MG TABLET PO SCH (08:01)
[2020-10-07] MEDS: FAMOTIDINE 20 MG TABLET PO SCH ×2 (08:01→20:06)
[2020-10-07] MEDS: POLYETHYLENE GLYCOL POWDER 17 GM PACK PO SCH (08:01)
[2020-10-07] MEDS: CETIRIZINE 10 MG TABLET PO SCH (08:01)
[2020-10-07] MEDS: DOCUSATE SODIUM 100 MG CAPSULE PO PRN ×2 (08:01→20:06)
[2020-10-07] MEDS: ASCORBIC ACID 500 MG TABLET PO SCH ×2 (08:01→20:06)
[2020-10-07] MEDS: ENOXAPARIN 100 MG/ML SYRINGE SUBCUT SCH ×2 (08:01→20:05)
[2020-10-07] MEDS: CHOLECALCIFEROL 5,000 UNIT TABLET PO SCH (08:01)
[2020-10-07] MEDS: DOCUSATE SODIUM 100 MG/10 ML UDCUP PO SCH ×3 (08:02→20:52)
[2020-10-07] MEDS: AMIODARONE 200 MG TABLET PO SCH (08:02)
[2020-10-07] MEDS: BUDESONIDE/FORMOTEROL 160-4.5 INHALER 6 GM INH SCH ×2 (08:03→20:06)
[2020-10-07] MEDS: VANCOMYCIN INJ 1,500 MG in SODIUM CHLORIDE 0.9% 500 ML IV SCH (10:18)
[2020-10-07] MEDS: SODIUM BICARB INJ 100 MEQ in DEXTROSE 5% 1,000 ML IV SCH (10:18)
[2020-10-07] MEDS: fentaNYL INJ 5,000 MCG in SODIUM CHLORIDE 0.9% 150 ML IV PRN ×2 (12:00→17:30)
[2020-10-07] MEDS: CISATRACURIUM 200 MG in SODIUM CHLORIDE 0.9% 180 ML IV PRN ×2 (14:25→22:45)
[2020-10-07] MEDS: MIDAZOLAM 100 MG in SODIUM CHLORIDE 0.9% 80 ML IV PRN (17:30)
[2020-10-07] MEDS: MELATONIN 3 MG TABLET PO SCH (20:06)
[2020-10-07] MEDS ORDERED: DILTIAZEM 25 MG/5 ML VIAL IV ONE ×2 (23:21→23:23)
[2020-10-07] MEDS ORDERED: DILTIAZEM INJ 100 MG in SODIUM CHLORIDE 0.9% 100 ML IV SCH (23:30)
[2020-10-08] MEDS: INSULIN REGULAR 100 UNIT/ML SUBCUT SCH ×6 (00:04→20:32)
[2020-10-08] MEDS ORDERED: DIGOXIN 0.5 MG/2 ML AMP IV ONE ×2 (01:03→02:00)
[2020-10-08] MEDS: CEFEPIME 1,000 MG in SODIUM CHLORIDE 0.9% 100 ML IV SCH ×4 (02:25→20:33)
[2020-10-08 03:19] LABS: Basophils # 0.1 10*3/uL (0.0-0.2); Basophils % 0.4 % (0.0-0.8); Hematocrit 27.6 VOL% (35.7-47.0); Hemoglobin 8.8 GM/DL (12.0-16.0); Immature Granulocytes % 7.3 %; Immature Granulocytes Absolute 2.01 #; Lymphocytes # 1.2 10*3/uL (1.4-4.0); Lymphocytes % 4.3 % (21.3-54.2); Mean Corpuscular HGB Conc 31.9 GM/DL (32-36); Mean Corpuscular Volume 92.9 FL (87-102); Mean Platelet Volume 12.2 FL (9.6-12.0); Monocytes % 4.3 % (1.7-12.7); NRBC # 0.78 10*3/uL; Neutrophils % 83.7 % (38.7-73.9); Platelet Count 138 T/CUMM (130-400); Red Blood Count 2.97 MC/CUMM (3.8-5.5); Red Cell Distribution Width 14.2 % (9.3-17.3); White Blood Count 27.6 T/CUMM (4-12)
[2020-10-08 03:22] LABS: ABG Base Excess 4.8 MMOL/L (-2.5-2.5); ABG HCO3 28.6 MMOL/L (20-26); ABG Oxygen Saturation 84.7 % (95-100); ABG PCO2 64.7 MM HG (35-48); ABG PO2 54.5 MM HG (80-95); ABG TCO2 30.4 MMOL/L (23-27)
[2020-10-08 03:44] LABS: Band Neutrophils 1 % (0-10); Hypochromasia 1+; Lymphocytes 1 % (20-55); Macrocytosis Slight; Nucleated Red Blood Cells 5 (0-5); Platelet Estimate Normal; Polychromasia Slight; Segmented Neutrophils 95 % (50-85); Total Cells Counted 100
[2020-10-08] MEDS: MIDAZOLAM 100 MG in SODIUM CHLORIDE 0.9% 80 ML IV PRN ×2 (04:00→14:11)
[2020-10-08 04:06] LABS: Osmolality,Calculated 291.7 MOS/KG (273-304); Potassium 5.3 MMOL/L (3.5-5.1)
[2020-10-08] MEDS: methylPREDNISolone SOD SUC 40 MG/1 ML VIAL IV SCH ×3 (04:56→20:33)
[2020-10-08] MEDS: fentaNYL INJ 5,000 MCG in SODIUM CHLORIDE 0.9% 150 ML IV PRN ×2 (05:02→22:40)
[2020-10-08] MEDS: CISATRACURIUM 200 MG in SODIUM CHLORIDE 0.9% 180 ML IV PRN ×2 (06:30→13:17)
[2020-10-08] MEDS: metroNIDAZOLE INJ 500 MG/100 ML PREMIX IV SCH (06:41)
[2020-10-08] MEDS: LEVOTHYROXINE 112 MCG TABLET PO SCH (06:41)
[2020-10-08] MEDS ORDERED: SODIUM CHLORIDE 0.9% 500 ML IV ONE (08:59)
[2020-10-08] MEDS ORDERED: METOPROLOL TARTRATE 5 MG/5 ML VIAL IV ONE (09:00)
[2020-10-08] MEDS: POLYETHYLENE GLYCOL POWDER 17 GM PACK PO SCH (09:39)
[2020-10-08] MEDS: ENOXAPARIN 100 MG/ML SYRINGE SUBCUT SCH ×2 (09:39→20:32)
[2020-10-08] MEDS: AMIODARONE 200 MG TABLET PO SCH (09:39)
[2020-10-08] MEDS: CHOLECALCIFEROL 5,000 UNIT TABLET PO SCH (09:40)
[2020-10-08] MEDS: CETIRIZINE 10 MG TABLET PO SCH (09:40)
[2020-10-08] MEDS: FAMOTIDINE 20 MG TABLET PO SCH ×2 (09:40→20:32)
[2020-10-08] MEDS: BUDESONIDE/FORMOTEROL 160-4.5 INHALER 6 GM INH SCH ×2 (09:40→20:42)
[2020-10-08] MEDS: ASCORBIC ACID 500 MG TABLET PO SCH ×2 (09:40→20:32)
[2020-10-08] MEDS: DOCUSATE SODIUM 100 MG CAPSULE PO PRN ×2 (09:40→20:32)
[2020-10-08] MEDS: ZINC GLUCONATE 50 MG TABLET PO SCH (09:40)
[2020-10-08] MEDS: SODIUM BICARB INJ 100 MEQ in DEXTROSE 5% 1,000 ML IV SCH (09:41)
[2020-10-08] MEDS: DOCUSATE SODIUM 100 MG/10 ML UDCUP PO SCH ×2 (10:10→20:42)
[2020-10-08] MEDS: VANCOMYCIN INJ 1,500 MG in SODIUM CHLORIDE 0.9% 500 ML IV SCH ×2 (10:45→23:07)
[2020-10-08] MEDS: MELATONIN 3 MG TABLET PO SCH (20:30)
[2020-10-09] MEDS: MIDAZOLAM 100 MG in SODIUM CHLORIDE 0.9% 80 ML IV PRN ×2 (00:23→13:21)
[2020-10-09] MEDS: INSULIN REGULAR 100 UNIT/ML SUBCUT SCH ×6 (00:32→20:21)
[2020-10-09] MEDS: CEFEPIME 1,000 MG in SODIUM CHLORIDE 0.9% 100 ML IV SCH (02:11)
[2020-10-09 04:40] LABS: ABG Base Excess -2.1 MMOL/L (-2.5-2.5); ABG HCO3 22.6 MMOL/L (20-26); ABG Oxygen Saturation 96.5 % (95-100); ABG PCO2 53.6 MM HG (35-48); ABG PH 7.272 (7.35-7.45); ABG PO2 86.9 MM HG (80-95)
[2020-10-09 04:41] LABS: Basophils # 0.1 10*3/uL (0.0-0.2); Basophils % 0.3 % (0.0-0.8); Hematocrit 25.1 VOL% (35.7-47.0); Immature Granulocytes % 8.5 %; Lymphocytes # 1.2 10*3/uL (1.4-4.0); Lymphocytes % 3.6 % (21.3-54.2); Mean Corpuscular HGB Conc 31.9 GM/DL (32-36); Mean Corpuscular Volume 94.4 FL (87-102); Mean Platelet Volume 12.1 FL (9.6-12.0); Monocytes % 4.6 % (1.7-12.7); NRBC # 0.82 10*3/uL; Platelet Count 150 T/CUMM (130-400); Red Blood Count 2.66 MC/CUMM (3.8-5.5); Red Cell Distribution Width 15.1 % (9.3-17.3); White Blood Count 31.9 T/CUMM (4-12)
[2020-10-09] MEDS: methylPREDNISolone SOD SUC 40 MG/1 ML VIAL IV SCH ×2 (04:49→17:26)
[2020-10-09 04:54] LABS: Calcium 6.5 MG/DL (8.5-10.1); Osmolality,Calculated 283.7 MOS/KG (273-304); Potassium 4.8 MMOL/L (3.5-5.1)
[2020-10-09 05:05] LABS: Band Neutrophils 2 % (0-10); Lymphocytes 6 % (20-55); Nucleated Red Blood Cells 4 (0-5); Segmented Neutrophils 85 % (50-85); Total Cells Counted 100
[2020-10-09 05:06] LABS: Hypochromasia 1+; Microcytosis 1+; Platelet Estimate Adequate; Polychromasia Slight
[2020-10-09] MEDS: LEVOTHYROXINE 112 MCG TABLET PO SCH (05:38)
[2020-10-09] MEDS: SODIUM BICARB INJ 100 MEQ in DEXTROSE 5% 1,000 ML IV SCH (06:40)
[2020-10-09] MEDS ORDERED: SODIUM CHLORIDE 0.9% 500 ML IV ONE ×2 (08:43→13:03)
[2020-10-09] MEDS ORDERED: METOPROLOL TARTRATE 5 MG/5 ML VIAL IV ONE ×3 (08:44→13:03)
[2020-10-09] MEDS ORDERED: MORPHINE 2 MG/1 ML SYRINGE IV ONE (08:45)
[2020-10-09] MEDS ORDERED: MORPHINE 2 MG/1 ML SYRINGE ONE (08:47)
[2020-10-09] MEDS: POLYETHYLENE GLYCOL POWDER 17 GM PACK PO SCH (08:56)
[2020-10-09] MEDS: FAMOTIDINE 20 MG TABLET PO SCH ×2 (08:56→20:33)
[2020-10-09] MEDS: ENOXAPARIN 100 MG/ML SYRINGE SUBCUT SCH ×2 (08:56→20:32)
[2020-10-09] MEDS: DOCUSATE SODIUM 100 MG CAPSULE PO PRN ×2 (08:57→20:33)
[2020-10-09] MEDS: CETIRIZINE 10 MG TABLET PO SCH (08:57)
[2020-10-09] MEDS: ASCORBIC ACID 500 MG TABLET PO SCH ×2 (08:57→20:33)
[2020-10-09] MEDS: ZINC GLUCONATE 50 MG TABLET PO SCH (08:57)
[2020-10-09] MEDS: AMIODARONE 200 MG TABLET PO SCH (09:40)
[2020-10-09] MEDS: BUDESONIDE/FORMOTEROL 160-4.5 INHALER 6 GM INH SCH ×2 (09:40→20:43)
[2020-10-09] MEDS: DOCUSATE SODIUM 100 MG/10 ML UDCUP PO SCH ×2 (09:40→20:43)
[2020-10-09] MEDS: CHOLECALCIFEROL 5,000 UNIT TABLET PO SCH (09:40)
[2020-10-09] MEDS: VANCOMYCIN INJ 1,500 MG in SODIUM CHLORIDE 0.9% 500 ML IV SCH ×2 (11:20→22:17)
[2020-10-09] MEDS: METOCLOPRAMIDE 10 MG/2 ML VIAL IV SCH ×3 (12:44→22:16)
[2020-10-09] MEDS ORDERED: METOPROLOL TARTRATE 5 MG/5 ML VIAL IV PRN (13:18)
[2020-10-09] MEDS: METOPROLOL TARTRATE 25 MG TABLET PO SCH ×2 (13:47→20:33)
[2020-10-09] MEDS: CISATRACURIUM 200 MG in SODIUM CHLORIDE 0.9% 180 ML IV PRN ×2 (13:48→21:55)
[2020-10-09] MEDS: MICAFUNGIN 100 MG in SODIUM CHLORIDE 0.9% 100 ML IV SCH (15:50)
[2020-10-09] MEDS: fentaNYL INJ 5,000 MCG in SODIUM CHLORIDE 0.9% 150 ML IV PRN (19:58)
[2020-10-09] MEDS: MELATONIN 3 MG TABLET PO SCH (20:33)
[2020-10-09] MEDS: PHENYLEPHRINE INJ 160 MG in SODIUM CHLORIDE 0.9% 234 ML IV PRN (20:57)
[2020-10-10] MEDS: INSULIN REGULAR 100 UNIT/ML SUBCUT SCH ×6 (01:01→20:33)
[2020-10-10] MEDS: MIDAZOLAM 100 MG in SODIUM CHLORIDE 0.9% 80 ML IV PRN ×2 (01:07→12:38)
[2020-10-10] MEDS: methylPREDNISolone SOD SUC 40 MG/1 ML VIAL IV SCH ×2 (04:46→17:43)
[2020-10-10] MEDS: SODIUM BICARB INJ 100 MEQ in DEXTROSE 5% 1,000 ML IV SCH (04:48)
[2020-10-10] MEDS: METOCLOPRAMIDE 10 MG/2 ML VIAL IV SCH ×3 (04:48→17:44)
[2020-10-10] MEDS: CISATRACURIUM 200 MG in SODIUM CHLORIDE 0.9% 180 ML IV PRN ×3 (04:49→21:19)
[2020-10-10 05:16] LABS: ABG Base Excess 7.2 MMOL/L (-2.5-2.5); ABG Oxygen Saturation 94.9 % (95-100); ABG PH 7.223 (7.35-7.45); ABG TCO2 35.5 MMOL/L (23-27)
[2020-10-10 05:19] LABS: ABG PCO2 90.4 MM HG (35-48)
[2020-10-10 05:22] LABS: Basophils % 0.1 % (0.0-0.8); Eosinophils % 0.1 % (0.00-10.9); Hematocrit 26.2 VOL% (35.7-47.0); Hemoglobin 8.4 GM/DL (12.0-16.0); Immature Granulocytes % 8.9 %; Immature Granulocytes Absolute 3.31 #; Lymphocytes # 1.6 10*3/uL (1.4-4.0); Lymphocytes % 4.3 % (21.3-54.2); Mean Corpuscular HGB Conc 32.1 GM/DL (32-36); Mean Corpuscular Volume 94.9 FL (87-102); Mean Platelet Volume 11.8 FL (9.6-12.0); Monocytes % 5.7 % (1.7-12.7); NRBC # 1.85 10*3/uL; Neutrophils % 80.9 % (38.7-73.9); Platelet Count 184 T/CUMM (130-400); Red Blood Count 2.76 MC/CUMM (3.8-5.5); Red Cell Distribution Width 15.9 % (9.3-17.3); White Blood Count 37.3 T/CUMM (4-12)
[2020-10-10 05:39] LABS: Calcium 7.2 MG/DL (8.5-10.1)
[2020-10-10] MEDS: LEVOTHYROXINE 112 MCG TABLET PO SCH (05:39)
[2020-10-10 06:12] LABS: Ferritin 1352.3 ng/mL (8-252)
[2020-10-10 06:15] LABS: Band Neutrophils 2 % (0-10); Lymphocytes 7 % (20-55); Nucleated Red Blood Cells 7 (0-5); Platelet Estimate Normal; Segmented Neutrophils 88 % (50-85); Total Cells Counted 100
[2020-10-10 06:38] LABS: Osmolality,Calculated 281.7 MOS/KG (273-304)
[2020-10-10 06:39] LABS: Potassium 5.4 MMOL/L (3.5-5.1)
[2020-10-10] MEDS: METOPROLOL TARTRATE 25 MG TABLET PO SCH ×2 (08:06→20:32)
[2020-10-10] MEDS: ZINC GLUCONATE 50 MG TABLET PO SCH (08:06)
[2020-10-10] MEDS: FAMOTIDINE 20 MG TABLET PO SCH ×2 (08:06→20:33)
[2020-10-10] MEDS: CETIRIZINE 10 MG TABLET PO SCH (08:06)
[2020-10-10] MEDS: AMIODARONE 200 MG TABLET PO SCH (08:06)
[2020-10-10] MEDS: CHOLECALCIFEROL 5,000 UNIT TABLET PO SCH (08:06)
[2020-10-10] MEDS: POLYETHYLENE GLYCOL POWDER 17 GM PACK PO SCH (08:07)
[2020-10-10] MEDS: ENOXAPARIN 100 MG/ML SYRINGE SUBCUT SCH ×2 (08:07→20:36)
[2020-10-10] MEDS: ASCORBIC ACID 500 MG TABLET PO SCH ×2 (08:07→20:32)
[2020-10-10] MEDS: DOCUSATE SODIUM 100 MG/10 ML UDCUP PO SCH ×2 (08:07→22:06)
[2020-10-10] MEDS: BUDESONIDE/FORMOTEROL 160-4.5 INHALER 6 GM INH SCH ×2 (08:08→22:06)
[2020-10-10] MEDS: VANCOMYCIN INJ 1,500 MG in SODIUM CHLORIDE 0.9% 500 ML IV SCH (10:45)
[2020-10-10] MEDS: fentaNYL INJ 5,000 MCG in SODIUM CHLORIDE 0.9% 150 ML IV PRN (13:00)
[2020-10-10 16:42] LABS: ABG Base Excess 7.4 MMOL/L (-2.5-2.5); ABG HCO3 31.1 MMOL/L (20-26); ABG Oxygen Saturation 93.2 % (95-100); ABG PO2 76.1 MM HG (80-95); ABG TCO2 37.9 MMOL/L (23-27)
[2020-10-10 16:46] LABS: ABG PH 7.165 (7.35-7.45)
[2020-10-10] MEDS: MICAFUNGIN 100 MG in SODIUM CHLORIDE 0.9% 100 ML IV SCH (16:58)
[2020-10-10 18:51] VITALS: BP 126/66
[2020-10-10] MEDS: MELATONIN 3 MG TABLET PO SCH (20:32)
[2020-10-10] MEDS: DOCUSATE SODIUM 100 MG CAPSULE PO PRN (20:33)
[2020-10-11] MEDS: VANCOMYCIN INJ 1,500 MG in SODIUM CHLORIDE 0.9% 500 ML IV SCH ×2 (00:53→12:35)
[2020-10-11] MEDS: METOCLOPRAMIDE 10 MG/2 ML VIAL IV SCH ×4 (00:54→17:27)
[2020-10-11] MEDS: INSULIN REGULAR 100 UNIT/ML SUBCUT SCH ×6 (00:54→20:55)
[2020-10-11] MEDS: PHENYLEPHRINE INJ 160 MG in SODIUM CHLORIDE 0.9% 234 ML IV PRN ×2 (00:56→21:34)
[2020-10-11] MEDS: MIDAZOLAM 100 MG in SODIUM CHLORIDE 0.9% 80 ML IV PRN ×3 (03:01→21:03)
[2020-10-11 04:10] LABS: ABG Base Excess 8.5 MMOL/L (-2.5-2.5); ABG HCO3 37.9 MMOL/L (20-26); ABG Oxygen Saturation 87.6 % (95-100); ABG PH 7.223 (7.35-7.45); ABG PO2 56.3 MM HG (80-95); ABG TCO2 40.8 MMOL/L (23-27)
[2020-10-11 04:17] LABS: ABG PCO2 94.1 MM HG (35-48)
[2020-10-11 04:18] LABS: Basophils # 0.2 10*3/uL (0.0-0.2); Basophils % 0.4 % (0.0-0.8); Eosinophils % 0.1 % (0.00-10.9); Hemoglobin 7.5 GM/DL (12.0-16.0); Immature Granulocytes Absolute 3.27 #; Lymphocytes # 1.8 10*3/uL (1.4-4.0); Lymphocytes % 5.1 % (21.3-54.2); Mean Corpuscular HGB Conc 31.3 GM/DL (32-36); Mean Platelet Volume 11.9 FL (9.6-12.0); Monocytes % 6.7 % (1.7-12.7); NRBC # 2.43 10*3/uL; Neutrophils % 78.7 % (38.7-73.9); Platelet Count 165 T/CUMM (130-400); Red Cell Distribution Width 16.3 % (9.3-17.3); White Blood Count 36.2 T/CUMM (4-12)
[2020-10-11 04:47] LABS: Calcium 6.7 MG/DL (8.5-10.1); Osmolality,Calculated 284.5 MOS/KG (273-304); Potassium 5.2 MMOL/L (3.5-5.1)
[2020-10-11 04:51] LABS: Ferritin 1064.9 ng/mL (8-252)
[2020-10-11 05:04] LABS: Band Neutrophils 1 % (0-10); Lymphocytes 2 % (20-55); Nucleated Red Blood Cells 15 (0-5); Segmented Neutrophils 91 % (50-85)
[2020-10-11 05:05] LABS: Hypochromasia 1+; Microcytosis 1+; Polychromasia Slight; Total Cells Counted 99
[2020-10-11 05:06] LABS: Basophilic Stippling Slight
[2020-10-11 05:07] LABS: Anisocytosis 1+; Platelet Estimate Adequate
[2020-10-11] MEDS: SODIUM BICARB INJ 100 MEQ in DEXTROSE 5% 1,000 ML IV SCH (05:27)
[2020-10-11] MEDS: LEVOTHYROXINE 112 MCG TABLET PO SCH (05:43)
[2020-10-11] MEDS: methylPREDNISolone SOD SUC 40 MG/1 ML VIAL IV SCH ×3 (05:44→17:26)
[2020-10-11] MEDS: CHOLECALCIFEROL 5,000 UNIT TABLET PO SCH (08:33)
[2020-10-11] MEDS: ASCORBIC ACID 500 MG TABLET PO SCH ×2 (08:33→20:34)
[2020-10-11] MEDS: DOCUSATE SODIUM 100 MG/10 ML UDCUP PO SCH ×2 (08:33→20:33)
[2020-10-11] MEDS: AMIODARONE 200 MG TABLET PO SCH (08:33)
[2020-10-11] MEDS: FAMOTIDINE 20 MG TABLET PO SCH ×2 (08:33→20:33)
[2020-10-11] MEDS: POLYETHYLENE GLYCOL POWDER 17 GM PACK PO SCH (08:34)
[2020-10-11] MEDS: ZINC GLUCONATE 50 MG TABLET PO SCH (08:34)
[2020-10-11] MEDS: CETIRIZINE 10 MG TABLET PO SCH (08:34)
[2020-10-11] MEDS: METOPROLOL TARTRATE 25 MG TABLET PO SCH ×2 (08:34→20:33)
[2020-10-11] MEDS: ENOXAPARIN 100 MG/ML SYRINGE SUBCUT SCH ×2 (08:34→20:55)
[2020-10-11] MEDS: fentaNYL INJ 5,000 MCG in SODIUM CHLORIDE 0.9% 150 ML IV PRN (09:35)
[2020-10-11 10:46] LABS: ABG Base Excess 5.9 MMOL/L (-2.5-2.5); ABG HCO3 29.6 MMOL/L (20-26); ABG PH 7.215 (7.35-7.45); ABG PO2 53.1 MM HG (80-95); ABG TCO2 34.3 MMOL/L (23-27)
[2020-10-11 10:48] LABS: ABG PCO2 88.4 MM HG (35-48)
[2020-10-11] MEDS ORDERED: FUROSEMIDE 40 MG/4 ML VIAL IV SCH ×2 (11:00→17:00)
[2020-10-11] MEDS ORDERED: SODIUM POLYSTYRENE SULFATE 15 GM/60 ML BOTTLE PO ONE (11:01)
[2020-10-11] MEDS: CISATRACURIUM 200 MG in SODIUM CHLORIDE 0.9% 180 ML IV PRN ×2 (11:14→18:21)
[2020-10-11] MEDS ORDERED: FUROSEMIDE 40 MG/4 ML VIAL IV ONE (11:18)
[2020-10-11] MEDS: ALBUMIN 25% 12.5 GM/50 ML VIAL IV SCH ×2 (11:20→17:39)
[2020-10-11] MEDS: BUDESONIDE/FORMOTEROL 160-4.5 INHALER 6 GM INH SCH ×2 (11:21→20:33)
[2020-10-11] MEDS ORDERED: VASOPRESSIN 100 UNITS in SODIUM CHLORIDE 0.9% 95 ML IV PRN (12:02)
[2020-10-11] MEDS: NOREPINEPHRINE 16 MG in SODIUM CHLORIDE 0.9% 234 ML IV PRN ×2 (14:34→21:04)
[2020-10-11 14:56] LABS: Hematocrit 23.8 VOL% (35.7-47.0); Hemoglobin 7.5 GM/DL (12.0-16.0)
[2020-10-11] MEDS: MICAFUNGIN 100 MG in SODIUM CHLORIDE 0.9% 100 ML IV SCH (15:30)
[2020-10-11] MEDS: MELATONIN 3 MG TABLET PO SCH (20:33)
[2020-10-13 23:11] LABS: Fungitell Quantitative Value < 31 pg/mL (<60 pg/mL)
[2020-10-15 16:06] LABS: Herpesvirus 7 IgM Ab by IFA <1:20
== END 2020-10-11 22:17 | disposition expired | DRG 207 ==
LOC: N.ED 12:10 → N.EDINP 15:10 → SUATTDRO 15:10 → N.2E 17:58 → N.CC 09-20 11:11
PROVIDERS: ADMIT Hospitalist; ATTEND Family Medicine